=== PATIENT | male | born 1970 | race Caucasian/White ===

== ENCOUNTER 2020-12-25 18:39 | Emergency (ER) | payer OTHER, SELFPAY ==
[2020-12-25 19:18] VITALS: BP 186/122; PULSE 72; RESP 20; TEMP 36.2; O2SAT 100
--- NOTE | 2020-12-25 21:05 | PC.NURSE ---
no answer at triage for vital signs
[2020-12-25 22:00] VITALS: BP 153/97; PULSE 72; RESP 19; O2SAT 96
[2020-12-25 23:49] VITALS: BP 170/101; PULSE 70; RESP 19; O2SAT 97
[2020-12-26 00:01] VITALS: RESP 19; O2SAT 97
--- NOTE | 2020-12-26 00:11 | ED.RECABL ---
HPI - Recheck/Abnormal Lab/Rx General Chief Complaint: Recheck/Abnormal Lab/Rx Stated Complaint: htn , no other complaints Time Seen by Provider: 12/25/20 23:56 Source: patient Mode of arrival: ambulatory Limitations: no limitations History of Present Illness HPI narrative: A 50-year-old male comes into the emergency department tonight with complaints of high blood pressure. Patient states he went to the dentist to get his teeth extracted and was told that he could not have it done because of high blood pressure. Patient states that this was done x4. He is denying any symptoms specifically including chest pain, dizziness, lightheadedness, numbness tingling or any changes in vision. Patient states that he feels in his usual state of health. Related Data Allergies Allergy/AdvReac Type Severity Reaction Status Date / Time No Known Allergies Allergy Verified 12/26/20 00:19 Review of Systems Review of Systems: Narrative: CONSTITUTIONAL: Denies fever, chills, or sweats. EYES: Denies visual changes, redness, or discharge. ENT: Denies rhinorrhea, congestion, sore throat, or otalgia. CARDIOVASCULAR: Denies chest pain, palpitations, or edema. RESPIRATORY: Denies cough or dyspnea. GASTROINTESTINAL: Denies abdominal pain, nausea, vomiting, or diarrhea. GENITOURINARY: Denies dysuria or hematuria. SKIN: Denies rash or itching. MUSCULOSKELETAL: Denies back pain, joint pain, or myalgia. NEUROLOGIC: Denies headache, numbness, dizziness, or weakness. PSYCHIATRIC: Denies anxiety or depression. [facility] Social History Social History Gender identity (if verbalized by the patient): Male Exam Narrative: Exam Narrative: GENERAL: Well-appearing, well-nourished, and in no acute distress. HEAD: Normocephalic, atraumatic. EYES: PERRLA and EOMI. ENT: Nares clear, no rhinorrhea or epistaxis. Mucous membranes moist. NECK: Supple. No adenopathy or masses. No carotid bruits or JVD CHEST: Clear to auscultation. No respiratory distress. No wheezes rales or rhonchi HEART: Regular rate and rhythm. No murmur heard. Normal peripheral pulses. ABDOMEN: Soft, nontender, nondistended, normal active bowel sounds. EXTREMITIES: Normal range of motion. No edema. SKIN: Warm, dry, no rash. NEURO: No focal deficits. Alert and oriented x3. PSYCH: Normal mood and affect. Course Reevaluation(s) Reevaluation #1: By the time I was able to evaluate the patient he had sat here for quite some time. His blood pressure did wax and wane a bit. He stated that he was feeling well, I instructed him that he may be discharged at this time with no further work-up. Patient recommended to follow-up with his PCP. Time: 00:20 Vital Signs Vital signs: Vital Signs Temperature 36.2 C L 12/25/20 19:18 Pulse Rate 72 12/25/20 19:18 Respiratory Rate 20 12/25/20 19:18 Blood Pressure 186/122 H 12/25/20 19:18 Pulse Oximetry 100 12/25/20 19:18 Temperature 36.2 C L 12/25/20 19:18 Pulse Rate 70 12/25/20 23:49 Respiratory Rate 19 12/26/20 00:01 Blood Pressure 170/101 H 12/25/20 23:49 Pulse Oximetry 97 12/26/20 00:01 MDM - Recheck/Abnormal Lab/Rx MDM Narrative Medical decision making narrative: In brief this 50-year-old male came into the emergency department tonight with complaints of elevated blood pressure that he was found to have at his local dentist. Patient complains of no symptoms at this time. Patient's blood pressure was elevated but as he is asymptomatic I instructed him that he needs to follow-up with his primary care physician. He was encouraged that should any of this change in the start to develop symptoms he is welcome to return to the emergency department at any time. Lab Data Result diagrams: 12/25/20 20:33 Labs: Lab Results 12/25/20 Range/Units 20:33 Sodium Pending Potassium Pending Chloride Pending Carbon Dioxide Pending Anion Gap Pending BU
== END 2020-12-26 00:45 | disposition home or self-care (01) ==
LOC: ANHED 12-26 00:30
PROVIDERS: Emergency Provider Emergency Medicine; PCP Emergency Medicine
DX: I10 Essential (primary) hypertension (principal)
CPT/HCPCS: 36415; 99283

== ENCOUNTER 2021-01-01 09:43 | Outpatient (CLI) | payer OTHER, SELFPAY ==
--- NOTE | ~2021-01-01 | XR_ITS ---
EXAMINATION: XR chest 2V EXAM DATE: 01/01/2021 10:21 INDICATION: Hypertension. Smoking. TECHNIQUE: Frontal and lateral projections of the chest obtained and reviewed. There is no prior estefanía dy for comparison. FINDINGS: The lungs are clear. There are no pleural effusions. The cardiomediastinal silhouette is within normal limits. There is no pneumothorax suspected. The bones and soft tissues are unremarkab le. IMPRESSION: No acute cardiopulmonary findings. Reviewed, dictated and finalized at location A. PROCESSING WORKER
[2021-01-01 10:10] LABS: Mean Corpuscular HGB Conc 33.3 g/dl (32-36); Mean Corpuscular Hemoglobin 31.4 pg (26-34); Mean Corpuscular Volume 94.3 fl (80-100); Mean Platelet Volume 8.8 fl (7.4-10.4); Platelet Count Result 267 k/mm3 (150-375); Red Blood Count 5.09 M/mm3 (4.6-6.20); Red Cell Distribution Width 13.5 % (11.5-14.5)
[2021-01-01 10:22] LABS: Alanine Aminotransferase 16 U/L (4-50); Albumin Level 3.9 g/dL (3.5-5.1); Alkaline Phosphatase 76 U/L (38-126); Anion Gap 3 mmol/L (8-16); Aspartate Amino Transferase 18 U/L (17-59); Bilirubin,Total 0.9 mg/dL (0.2-1.3); Blood Urea Nitrogen 12 mg/dL (9-20); Calcium 8.5 mg/dL (8.4-10.2); Carbon Dioxide 33 mmol/L (22-30); Chloride 104 mmol/L (98-107); Cholesterol 136 mg/dL (0-200); Estimated Glomerular Filt Rate > 60; Glucose 97 mg/dL (75-110); HDL Direct 37 mg/dL; Potassium 4.5 mmol/L (3.4-5.0); Sodium 140 mmol/L (137-145); Triglycerides 79 mg/dL (<150)
[2021-01-01 10:33] LABS: LDL Cholesterol Direct 83 mg/dL
[2021-01-01 11:10] LABS: Hemoglobin A1C 4.9 % (<5.7)
[2021-01-01 11:11] LABS: Free T4 Free Thyroxine 1.19 ng/mL (0.78-2.19); Vitamin D 25 Hydroxy 21.2 ng/mL
[2021-01-01 11:40] LABS: MALB Creatinine Ratio 10.5 mg/g (0-30)
== END 2021-01-01 09:44 | disposition home or self-care (01) ==
PROVIDERS: PCP Emergency Medicine; Visit Provider Emergency Medicine
DX: Z00.00 Encounter for general adult medical examination without abnormal findings (principal); I10 Essential (primary) hypertension; E66.9 Obesity, unspecified; Z87.891 Personal history of nicotine dependence
CPT/HCPCS: 36415; 71046; 80053; 80061; 82043; 82306; 83036; 84439; 84443; 85027

== ENCOUNTER 2021-01-27 12:26 | Outpatient (CLI) | payer OTHER, SELFPAY ==
[2021-01-27 13:05] LABS: Hemoglobin A1C 5.1 % (<5.7)
[2021-01-27 13:37] LABS: Add Urine Microscopic? YES; Appearance Urine Cloudy (Clear); Bacteria Urine Trace /hpf; Bilirubin Urine Negative (Negative); Blood Urine Negative (Negative); Color Urine Amber (Yellow); Glucose Urine UA Negative (Negative); Ketones Urine Negative (Negative); Leukocyte Esterase Ur 2+ LEU/UL (NEGATIVE); Mucus Urine Few /lpf; Nitrate Urine Negative (Negative); Protein Urine 1+ mg/dL (Negative); Specific Grav Ur 1.026 (1.001-1.035); Squamous Epithelial Cell Urine Few /hpf (Few); WBC Urine 21-30 /hpf (0-3)
[2021-01-27 13:41] LABS: Prostate Specific Antigen 0.3 ng/mL (< OR = 4.0)
[2021-01-27 13:48] LABS: Creatinine Urine 214.3 mg/dL
[2021-01-27 13:52] LABS: Microalbumin Urine Random 32.2 mg/L (0-16.7)
[2021-01-27 14:32] LABS: Vitamin D 25 Hydroxy 23.7 ng/mL
== END 2021-01-27 12:27 | disposition home or self-care (01) ==
PROVIDERS: PCP Emergency Medicine; Visit Provider Emergency Medicine
DX: Z00.00 Encounter for general adult medical examination without abnormal findings (principal)
CPT/HCPCS: 36415; 81001; 82043; 82306; 83036; 84153

== ENCOUNTER 2021-02-06 12:56 | Outpatient (CLI) | payer OTHER, SELFPAY ==
[2021-02-06 13:56] LABS: Add Urine Microscopic? YES; Appearance Urine Cloudy (Clear); Bacteria Urine Trace /hpf; Bilirubin Urine Negative (Negative); Blood Urine Negative (Negative); Color Urine Yellow (Yellow); Glucose Urine UA Negative (Negative); Ketones Urine Negative (Negative); Leukocyte Esterase Ur Negative LEU/UL (NEGATIVE); Mucus Urine Rare /lpf; Nitrate Urine Negative (Negative); Protein Urine 1+ mg/dL (Negative); Specific Grav Ur 1.019 (1.001-1.035); Squamous Epithelial Cell Urine Moderate /hpf (Few); WBC Urine 0-3 /hpf (0-3)
== END 2021-02-06 12:57 | disposition home or self-care (01) ==
PROVIDERS: PCP Emergency Medicine; Visit Provider Emergency Medicine
DX: R31.29 Other microscopic hematuria (principal)
CPT/HCPCS: 81001; 87086; 87088

== ENCOUNTER 2023-10-27 11:57 | Inpatient (IN) | payer OTHER, SELFPAY ==
[2023-10-27] VITALS (20 sets, daily range): BP systolic 154–191; BP diastolic 105–120; PULSE 72–106; RESP 16–26; TEMP 36.6–36.9; O2SAT 94–100; BMI 64.0
--- NOTE | ~2023-10-27 | XR_ITS ---
EXAMINATION: XR chest 1V portable DATE: 10/30/2023 05:34 INDICATION: Congestive heart failure. TECHNIQUE: A single frontal view of the chest was obtained. COMPARISON: Chest single view 10/27/2023 FINDINGS: There are mild airspace opacities in left mid and lower lung zones. No pleural effusion or pneumothorax. Cardiomegaly is noted. IMPRESSION: 1. Worsened mild airspace opacities in left mid and lower lung zones, consistent with atelectasis brinda mimi pneumonia. 2. Cardiomegaly. Reviewed, dictated and finalized at location A. CTOR INFORMATION SECURITY IMPRESSION: 1. Worsened mild airspace opacities in left mid and lower lung zones, consisten t with atelectasis versus pneumonia. 2. Cardiomegaly.
--- NOTE | ~2023-10-27 | NM_ITS ---
EXAMINATION: NM muga DATE: 10/29/2023 10:57 INDICATION: Cardiomyopathy. Congestive heart failure. COMPARISON: None. TECHNIQUE: Stannous pyrophosphate was administered IV. After a waiting period, 25.8 mCi Tc-99m pertec hnetate was administered IV to radiolabel the red blood cells. Gated images of the heart were obtaine d in the best septal view.] FINDINGS: There is no regional wall motion abnormality or paradoxical motion of the left ventricle. The left ventricular ejection fraction measures 59%. IMPRESSION: 1. Normal left ventricular ejection fraction measuring 59%. Reviewed, dictated and finalized at location A. IGURATION SPECIALIST
--- NOTE | ~2023-10-27 | XR_ITS ---
EXAMINATION: XR chest 1V portable Exam Date/Time: 10/27/2023 16:40 [place]INA KURA [place] MAORI HISTORY: leg swelling Comparison: 01/01/2021. RESULT: Lines, tubes, and devices: None. Lungs and pleura: No focal consolidation or pneumothorax. Vascular congestion. Moderate diffuse reti cular opacities. Mild bilateral costophrenic angle blunting. Cardiomediastinal silhouette: Stable. Other: No acute osseous or upper abdominal finding. IMPRESSION: Moderate interstitial edema and possible small bilateral effusions. Reviewed, dictated and finalized at location K. WHINA [place] MAORI
--- NOTE | ~2023-10-27 | US_ITS ---
EXAMINATION:US venous doppler LE BI INDICATION:Leg swelling TECHNIQUE: Multiple grayscale, color flow and Doppler images of the right and left lower extremity de ep venous systems were obtained and reviewed. COMPARISON:No prior studies for comparison. FINDINGS: The right femoral, posterior tibial and peroneal vein as well as the left greater saphenous and peroneal veins are not well visualized due to patient body habitus and edema. The remainder of t he lower extremity veins are patent with normal compressibility, augmentation and color flow. IMPRESSION: 1: No lower extremity deep venous thrombosis. Limited study. Reviewed, dictated and finalized at location B. AND BEVERAGE ANALYST
--- NOTE | 2023-10-27 15:30 | ECG_ITS ---
Measurements Intervals [place] Rate: 92 P: [place]: 0 QRS: 41 QRSD: 101 T: 55 QT: 399 QTc: 494 Interpretive Statements ATRIAL FIBRILLATION LOW QRS VOLTAGE [QRS DEFLECTION < 0.5/1.0 mV IN LIMB/CHEST LEADS] INCOMPLETE RIGHT BUNDLE BRANCH BLOCK [90+ ms QRS DURATION, TERMINAL R IN V1/V2, 40+ ms S IN I/aVL/V4/V5/V6] POSSIBLE ANTERIOR MYOCARDIAL INFARCTION , PROBABLY OLD [30 ms Q WAVE IN V3/V4, OR R < 0.2 mV IN V4] NO PREVIOUS ECG AVAILABLE FOR COMPARISON Electronically Signed On 10-27-2023 21:09:51 LAWN CARE SPECIALIST by Zafar Sandoval M.D.
[2023-10-27 16:23] LABS: Basophils Absolute Auto 0.1 K/mm3 (0.0-0.1); Basophils Percent Auto 0.5 % (0.2-1.2); Eosinophils Absolute Auto 0.1 K/mm3 (0-0.3); Eosinophils Percent Auto 1.1 % (0-4.4); Hematocrit 45.9 % (42.0-52.0); Hemoglobin 14.4 g/dL (14.0-18.0); Immature Granulocyte Absolute 0.06 K/mm3 (0.00-0.031); Immature Granulocyte Percent A 0.6 % (0-0.5); Lymphocytes Absolute Auto 1.55 K/mm3 (0.9-3.2); Lymphocytes Percent Auto 14.9 % (18.3-44.2); Mean Corpuscular HGB Conc 31.4 g/dl (32-36); Mean Corpuscular Hemoglobin 33.4 pg (26-34); Mean Corpuscular Volume 106.5 fl (80-100); Mean Platelet Volume 8.5 fl (7.4-10.4); Monocytes Absolute Auto 0.8 K/mm3 (0.1-0.6); Neutrophils Absolute Auto 7.8 K/mm3 (1.3-6.7); Neutrophils Percent Auto 74.9 % (45.5-73.1); Platelet Count Result 283 k/mm3 (150-375); Red Blood Count 4.31 M/mm3 (4.6-6.20); Red Cell Distribution Width 14.7 % (11.5-14.5); White Blood Count 10.4 K/mm3 (4.5-10.0)
[2023-10-27 16:33] LABS: INR 1.2; Prothrombin Time 15.5 Seconds (11.1-14.7)
[2023-10-27 16:34] LABS: Macrocytosis 2+ (NORMAL); Partial Thromboplastin Time 36.2 SECONDS (22.3-36.8); Platelet Estimate Adequate (Adequate); Schistocytes None Seen (NORMAL)
[2023-10-27 17:05] LABS: Alanine Aminotransferase 17 U/L (6-50); Albumin Level 3.6 g/dL (3.5-5.1); Alkaline Phosphatase 81 U/L (38-126); Anion Gap 5 mmol/L (8-16); Aspartate Amino Transferase 27 U/L (17-59); Bilirubin,Total 1.6 mg/dL (0.2-1.3); Blood Urea Nitrogen 11 mg/dL (9-20); Calcium 8.3 mg/dL (8.4-10.2); Carbon Dioxide 35 mmol/L (22-30); Chloride 99 mmol/L (98-107); Estimated CRCL calculation 126 ml/min; Estimated Glomerular Filt Rate > 60; Glucose 107 mg/dL (65-110); Potassium 3.7 mmol/L (3.4-5.0); Sodium 139 mmol/L (137-145)
[2023-10-27 17:14] LABS: NT Pro B Type Natriuretic Pept 2110 pg/mL (19.9-100)
[2023-10-27] MEDS: FUROSEMIDE INJ 40 MG/4 ML VIAL IV PUSH ×2 (17:46→20:58)
--- NOTE | 2023-10-27 17:48 | ED.GENADULT ---
HPI - General Adult General Chief complaint: Abdominal Pain Stated complaint: abd distention, scrotal swelling Time Seen by Provider: 10/27/23 15:14 History of Present Illness HPI narrative: Patient is a 52-year-old male who presents ER with progressive edema. Worsening over the last month. Began in his legs and then has progressed up to his mid abdomen. No chest pain or shortness of breath. Has trouble using the restroom. Denies history of heart failure. No difficulty eating and drinking. Patient reports he is on his feet all day. No history DVT. Related Data Allergies Allergy/AdvReac Type Severity Reaction Status Date / Time No Known Allergies Allergy Verified 10/27/23 15:21 Review of Systems Review of Systems: All systems reviewed & are unremarkable except as noted in HPI and below Constitutional: Constitutional: Reports no additional constitutional complaints ENT: Reports system reviewed and no additional complaints, except as documented Cardiovascular: Cardiovascular: Reports no additional cardiovascular complaints Respiratory: Respiratory: Reports no additional respiratory complaints Gastrointestinal: Gastrointestinal: Reports no additional gastrointestinal complaints Musculoskeletal: Musculoskeletal: Denies arthralgias and Denies joint swelling Comments: Leg edema Integumentary/Breasts: Skin/Breast: Reports system reviewed and no additional complaints, except as docu PMF Past Medical History Medical History (Updated 10/27/23 @ 18:10 by Jared Drake MD) Hypertension Morbid obesity Surgical History Surgical History (Updated 10/27/23 @ 18:08 by Jared Drake MD) No pertinent past surgical history Social History Social History Gender identity (if verbalized by the patient): Male Exam Narrative: GENERAL: Well-appearing, well-nourished, and in no acute distress. HEAD: Normocephalic, atraumatic. ENT: Mucous membranes moist. CHEST: Clear to auscultation. No respiratory distress. HEART: Regular rate and rhythm. Normal peripheral pulses. ABDOMEN: Soft, nontender, nondistended, pitting edema to the umbilicus.. EXTREMITIES: Normal range of motion. 4+ edema. SKIN: Warm, dry, Venous stasis changes lower extremities. NEURO: Alert and oriented x3. PSYCH: Normal mood and affect. Course Course Emergency Course: Patient resting comfortably. Informed of results. Recommend admission for observation and diuresis. Would like to workup for heart failure exacerbation. Vital Signs Vital signs: Vital Signs Temperature 98 F 10/27/23 12:17 Pulse Rate 97 10/27/23 12:17 Respiratory Rate 20 10/27/23 12:17 Blood Pressure 160/115 H 10/27/23 12:17 Pulse Oximetry 96 10/27/23 12:17 Temperature 98 F 10/27/23 12:17 Pulse Rate 83 10/27/23 17:56 Respiratory Rate 24 H 10/27/23 17:56 Blood Pressure 183/115 H 10/27/23 17:56 Pulse Oximetry 100 10/27/23 17:52 Medical Decision Making Vital Signs Vital Signs: Vital Signs Temperature 98 F 10/27/23 12:17 Pulse Rate 97 10/27/23 12:17 Respiratory Rate 20 10/27/23 12:17 Blood Pressure 160/115 H 10/27/23 12:17 Pulse Oximetry 96 10/27/23 12:17 Temperature 98 F 10/27/23 12:17 Pulse Rate 83 10/27/23 17:56 Respiratory Rate 24 H 10/27/23 17:56 Blood Pressure 183/115 H 10/27/23 17:56 Pulse Oximetry 100 10/27/23 17:52 Lab Data 10/27/23 16:17 10/27/23 16:17 Labs: Lab Results 10/27/23 Range/Units 16:17 WBC 10.4 H (4.5-10.0) K/mm3 RBC 4.31 L (4.6-6.20) M/mm3 Hgb 14.4 (14.0-18.0) g/dL Hct 45.9 (42.0-52.0) % MCV 106.5 H (80-100) fl MCH 33.4 (26-34) pg MCHC 31.4 L (32-36) g/dl RDW 14.7 H (11.5-14.5) % Plt Count 283 (150-375) k/mm3 MPV 8.5 (7.4-10.4) fl Immature Gran % (Auto) 0.6 H (0-0.5) % Neut % (Auto) 74.9 H (45.5-73.1) % Lymp
--- NOTE | 2023-10-27 18:55 | ADMGEN ---
This patient, Ming Copeland, was admitted to [facility] Surg Room 324-02. Patient/family oriented to hospital policies and general routines including ID bracelet, bed and alarms, visiting hours, pain management, procedures, bathroom and other care routines, personal items, smoking policy, room service/diet, and visiting hours. Information on how to activate the Rapid Response Team has been discussed. Patient/Family are encouraged to report perceived risks to care and to ask questions if they do not understand what they are told or what they should do.
--- NOTE | 2023-10-27 20:21 | PM.IMHP ---
H&P: HPI History of Present Illness Date/Time: 10/27/23 20:21 Chief Complaint: Swelling Narrative: 52 y/o M presents here with increasing swelling with PMH of HTN (not on medications). Patient reports that he has been experiencing bilateral lower extremity edema chronically for the last 3-4 months. Initially attributed this swelling due to being on his feet for long periods of and standing long periods of of time at his job - currently works as a cook. Then in the last 1-1.5 weeks he began noticing lower abdominal swelling which then progressed to scrotal swelling in the last 2-3 days. Reports difficulty with urination related to the severity of swelling and inability to aim, has had to urinate in the shower. Reports mild shortness of breath at baseline, typically worsens with cold weather but denies any recent increase. Also denies chest pain or palpitations. Reports a history of high blood pressure, not currently on medications. No other past medical history. ED workup revealed WBC of 10.4, hgb normal at 14.4, mild hypercapnia, mild hypocalcemia, elevated proBNP 2110. CXR showed moderate interstitial edema and possible small bilateral effusions. US of BLE showed no DVT, limited study. Review of Systems Review of Systems: All systems reviewed & are unremarkable except as noted in HPI and below PMFSH Past Medical History Medical History (Updated 10/27/23 @ 22:47 by Letty Evans APRN) Hypertension Morbid obesity Surgical History Surgical History No pertinent past surgical history Social History Social History Smoking packs per day: 0.5 Smoking cigarettes per day: 10.0 Smoking status: Former smoker Alcohol intake: former Substance use: never Do You Feel Safe in your Home?: Yes Lack of Transportation: No Lack of Food: Never True Current Housing: I Have Housing Concerned About Future Housing: No Difficulty Paying Gas/Electric Bills: No Difficulty Paying for Meds: No Currently Unemployed: No Education: High School Diploma/GED Difficulty w/ Childcare or Family Care: No Gender identity (if verbalized by the patient): Male Spiritual care concerns: No Meds Home Medications and Allergies Home Medications Medication Instructions Recorded Confirmed Type No Home Medications 10/27/23 10/27/23 History Allergies Allergy/AdvReac Type Severity Reaction Status Date / Time No Known Allergies Allergy Verified 10/27/23 15:21 Vital Signs Vital Signs - 24 hr 10/27/23 12:17 10/27/23 15:24 10/27/23 15:33 Temperature 98 F Pulse Rate 97 102 H Respiratory Rate 20 19 22 H Blood Pressure 160/115 H 191/120 H Pulse Oximetry 96 99 94 10/27/23 16:17 10/27/23 16:41 10/27/23 16:45 Temperature Pulse Rate 85 85 90 Respiratory Rate 19 24 H 19 Blood Pressure Pulse Oximetry 95 96 10/27/23 17:00 10/27/23 17:52 10/27/23 17:56 Temperature Pulse Rate 85 85 83 Respiratory Rate 20 25 H 24 H Blood Pressure 183/115 H Pulse Oximetry 100 10/27/23 17:57 10/27/23 18:00 10/27/23 18:02 Temperature Pulse Rate 85 88 82 Respiratory Rate 16 20 21 H Blood Pressure 159/105 H Pulse Oximetry 99 100 98 10/27/23 18:15 10/27/23 18:22 10/27/23 18:23 Temperature Pulse Rate 86 88 90 Respiratory Rate 21 H 16 17 Blood Pressure 165/106 H Pulse Oximetry 99 10/27/23 18:30 Temperature Pulse Rate 106 H Respiratory Rate 26 H Blood Pressure Pulse Oximetry Exam Const: General: comfortable and no acute distress Other: Obese body habitus. Nontoxic appearance. HENMT: Face/Nose/Sinus: Normal nares present Mouth: Yes moist mucous membranes Eyes: General: appearance normal, both eyes and all related structures Sclera: sclerae normal Pupils: Equal, round and reactive pupils present EOM: EOMs intact bilaterally Resp:
[2023-10-27] MEDS: PROPRANOLOL HCL 40 MG TABLET PO (22:32)
[2023-10-27] MEDS: ceFAZolin 1 GM/NS 50 ML 1 GM/50 ML BAG IVPB (22:33)
[2023-10-28] VITALS (11 sets, daily range): BP systolic 128–152; BP diastolic 75–106; PULSE 64–84; RESP 13–18; TEMP 35.9–36.3; O2SAT 94–96
[2023-10-28] MEDS: ceFAZolin 1 GM/NS 50 ML 1 GM/50 ML BAG IVPB ×3 (05:32→21:18)
--- NOTE | 2023-10-28 06:00 | ECHO_ITS ---
Patient Info Name: Ming Copeland Age: 52 years : 1970 Gender: Male Ht: 68 in Wt: 421 lbs BSA: 3.15 m2 HR: 79 bpm BP: 159 / 102 mmHg Heart Rhythm: Indeterminant Technical Quality: Poor Exam Date: 10/28/2023 8:58 AM Exam Location: Echo Lab Patient Status: Outpatient Admit Date: 10/27/2023 Staff Ordering Physician: Jared Drake MD Trailer Park Manager: Ruben Nunez RDCS Attending Provider: Delmer Brenner MD Referring Physician: Vidal DEVRIES; Exam Type: CA echo dop color flow w con Study Info Indications - new heart faliure Complete two-dimensional, color flow and Doppler transthoracic echocardiogram is performed with contrast to opacify the left ventricle and to improve the deliniation of the left ventricle endocardial borders. Contrast/Agitated Saline Contrast/Ag. Saline: Definity Amount: 3.00 ml Reason for Poor Study: poor echocardiographic windows Summary 1. Technically difficult study with limited views due to patient body habitus. 2. Very technically difficult study due to patient body habitus, even with Definity. Cannot accurately estimate the left ventricular ejection fraction. Consider alternative cardiac imaging for assessment of LVEF. 3. Right ventricular chamber dimension is mildly enlarged. 4. Right atrial chamber dimension is moderately enlarged. 5. There is mild tricuspid valve regurgitation. Left Ventricle Very technically difficult study due to patient body habitus, even with Definity. Cannot accurately estimate the left ventricular ejection fraction. Consider alternative cardiac imaging for assessment of LVEF. Right Ventricle Right ventricular chamber dimension is mildly enlarged. Left Atria Left atrial chamber dimension is normal. Right Atria Right atrial chamber dimension is moderately enlarged. Atrial Septum Interatrial septum is not well visualized. Aortic Valve The aortic valve is not well visualized. There is no aortic valve regurgitation. Pulmonic Valve The pulmonic valve is not well visualized. Mitral Valve There is trace mitral valve regurgitation. Tricuspid Valve There is mild tricuspid valve regurgitation. Pericardium/Pleural There is no pericardial effusion. Inferior Vena Cava Inferior vena cava is not well visualized. Aorta The aortic root size at the sinus of Valsalva is normal. Left Ventricular Outflow Tract Name Value Normal LVOT Doppler LVOT Peak Gradient 2 mmHg LVOT Mean Gradient 1 mmHg LVOT VTI 14.61 cm LVOT VTI/AV VTI Ratio 0.57 Pulmonic Valve Name Value Normal RVOT Doppler RVOT Peak Gradient 1 mmHg PV Doppler PV Peak Gradient 2 mmHg Mitral Valve Name Value Normal
[2023-10-28 07:01] LABS: Basophils Absolute Auto 0.1 K/mm3 (0.0-0.1); Basophils Percent Auto 0.5 % (0.2-1.2); Eosinophils Absolute Auto 0.1 K/mm3 (0-0.3); Eosinophils Percent Auto 1.2 % (0-4.4); Hemoglobin 14.1 g/dL (14.0-18.0); Immature Granulocyte Absolute 0.05 K/mm3 (0.00-0.031); Immature Granulocyte Percent A 0.5 % (0-0.5); Lymphocytes Absolute Auto 1.57 K/mm3 (0.9-3.2); Lymphocytes Percent Auto 14.1 % (18.3-44.2); Mean Corpuscular Hemoglobin 33.8 pg (26-34); Mean Corpuscular Volume 105.5 fl (80-100); Mean Platelet Volume 8.8 fl (7.4-10.4); Monocytes Percent Auto 8.6 % (2.6-8.5); Neutrophils Absolute Auto 8.3 K/mm3 (1.3-6.7); Neutrophils Percent Auto 75.1 % (45.5-73.1); Platelet Count Result 302 k/mm3 (150-375); Red Blood Count 4.17 M/mm3 (4.6-6.20); Red Cell Distribution Width 14.7 % (11.5-14.5); White Blood Count 11.1 K/mm3 (4.5-10.0)
[2023-10-28 07:17] LABS: Alanine Aminotransferase 16 U/L (6-50); Albumin Level 3.5 g/dL (3.5-5.1); Alkaline Phosphatase 72 U/L (38-126); Anion Gap 7 mmol/L (8-16); Aspartate Amino Transferase 26 U/L (17-59); Blood Urea Nitrogen 12 mg/dL (9-20); Calcium 8.4 mg/dL (8.4-10.2); Carbon Dioxide 34 mmol/L (22-30); Chloride 98 mmol/L (98-107); Estimated CRCL calculation 127 ml/min; Estimated Glomerular Filt Rate > 60; Glucose 98 mg/dL (65-110); Potassium 3.5 mmol/L (3.4-5.0); Sodium 139 mmol/L (137-145)
[2023-10-28 07:49] LABS: CRP 3.1 mg/dL (<1.0); Cholesterol 111 mg/dL (0-200); HDL Direct 29 mg/dL; Triglycerides 77 mg/dL (<150)
[2023-10-28 07:57] LABS: LDL Cholesterol Direct 64 mg/dL
[2023-10-28] MEDS: PERFLUTREN LIPID MICROSPHERES 1.5 ML VIAL DILUTED TO 10 ML TOTAL VOLUME IV PUSH (09:25)
[2023-10-28] MEDS: PROPRANOLOL HCL 40 MG TABLET PO (09:58)
[2023-10-28] MEDS: FUROSEMIDE INJ 40 MG/4 ML VIAL IV PUSH ×2 (09:58→21:18)
[2023-10-28] MEDS: ENOXAPARIN 40 MG/0.4 ML SYRINGE SUB-Q (09:58)
[2023-10-28 10:23] LABS: Erythrocyte Sedimentation Rate 26 mm/hr (0-20)
[2023-10-28 10:48] LABS: Hemoglobin A1C 5.9 % (<5.7)
--- NOTE | 2023-10-28 10:55 | PM.IMPN ---
Progress Note: A&P Assessment and Plan (1) Edema of abdomen: Code(s): R18.8 - Other ascites Status: Acute Assessment and Plan: highly suspect new onset CHF. BNP currently elevated at 1999. CXR shows moderate interstitial edema and possible small bilateral effusions. Echo pending. Started on Lasix 40 IVP Q12H. cardiology consulted. TSH normal. A1c 5.9. Lipid: 111/29/64/77. Suspect patient also has cocurrent cellulitis of the lower abdomen and scrotum. Monitor I&Os and daily weights. Further plan of care post echo results. (2) Scrotum swelling: Code(s): N50.89 - Other specified disorders of the male genital organs Status: Acute Assessment and Plan: Physical exam findings of scrotum consistent with cellulitis. Started on Ancef. Adding ESR and CRP to a.m. labs. WBC mildly out of range at 10.4. Continue to trend. Adding Tee due to current inability to direct stream due to swelling, assisting with monitoring I&Os. No current open wounds to culture. Consider scrotal ultrasound if no improvement (3) Edema of both lower extremities: Code(s): R60.0 - Localized edema Status: Acute Assessment and Plan: See above. Currently being diuresed and worked up for new CHF. (4) Hypertension: Qualifiers: Hypertension type: primary hypertension Qualified Code(s): I10 - Essential (primary) hypertension Code(s): I10 - Essential (primary) hypertension Status: Acute Assessment and Plan: Previous diagnosis, not on medications. Due to likelihood of new onset CHF, started on propanolol 40 b.i.d. cardiology has been consulted, awaiting further recs. Continue to monitor blood pressure. Plan Diet: Heart healthy GI Prophylaxis: Not currently indicated DVT Prophylaxis: SCDs, Lovenox Lines: pIV Code Status: Full Code Subjective Date/time seen: 10/28/23 10:55 Interval history: Feels okay. Denies any shortness of breath. Reports leg swelling. Tee in place Review of Systems Review of Systems: All systems reviewed & are unremarkable except as noted in HPI and below Exam Narrative: GENERAL: Well-appearing, well-nourished, and in no acute distress. HEAD: Normocephalic, atraumatic. ENT:? Mucous membranes moist. CHEST: Clear to auscultation.? No respiratory distress. HEART: Regular rate and rhythm. ? Normal peripheral pulses. ABDOMEN: Soft, nontender, nondistended, pitting edema to the umbilicus.. EXTREMITIES: Normal range of motion.? 4+ edema. SKIN: Warm, dry, ? Venous stasis changes lower extremities. NEURO:? Alert and oriented x3. PSYCH: Normal mood and affect. Objective Data Vital Signs Vital Signs: Vital Signs - 24 hr 10/27/23 12:17 10/27/23 15:24 10/27/23 15:33 Temperature 98 F Pulse Rate 97 102 H Respiratory Rate 20 19 22 H Blood Pressure 160/115 H 191/120 H Pulse Oximetry 96 99 94 Oxygen Delivery 10/27/23 16:17 10/27/23 16:41 10/27/23 16:45 Temperature Pulse Rate 85 85 90 Respiratory Rate 19 24 H 19 Blood Pressure Pulse Oximetry 95 96 Oxygen Delivery 10/27/23 17:00 10/27/23 17:52 10/27/23 17:56 Temperature Pulse Rate 85 85 83 Respiratory Rate 20 25 H 24 H Blood Pressure 183/115 H Pulse Oximetry 100 Oxygen Delivery 10/27/23 17:57 10/27/23 18:00 10/27/23 18:02 Temperature Pulse Rate 85 88 82 Respiratory Rate 16 20 21 H Blood Pressure 159/105 H Pulse Oximetry 99 100 98 Oxygen Delivery 10/27/23 18:15 10/27/23 18:22 10/27/23 18:23 Temperature Pulse Rate 86 88 90 Respiratory Rate 21 H 16 17 Blood Pressure 165/106 H Pulse Oximetry 99 Oxygen Delivery 10/27/23 18:30 10/27/23 22:32 10/27/23 20:58 Temperature Pulse Rate 106 H 80 Respiratory Rate 26 H Blood Pressure Pulse Oximetry Oxygen Delivery Room Air 10/27/23 20:50 10/27/23 22:35 10/27/23 20:00 Temperature 98.5 F Pulse Rate 91 72 86 Respiratory Rat
--- NOTE | 2023-10-28 12:45 | PM.CNCAR ---
Assessment and Plan Assessment and plan (1) CHF exacerbation: Code(s): I50.9 - Heart failure, unspecified Status: Acute Assessment and Plan: Presents with what appears to be decompensated heart failure. Likely diastolic. Improving with IV furosemide Continue furosemide 40mg IV b.i.d. for now Daily weights Strict I&O CHF counseling Echo is pending, further recommendations to follow review of this study (2) Atrial fibrillation: Code(s): I48.91 - Unspecified atrial fibrillation Status: Acute Assessment and Plan: This is a new diagnosis. Chronicity unknown. He is rate controlled on propranolol. He has a CHADs2 Vasc score of 2 (CHF, HTN). Will start systemic a/c with Xarelto 20mg daily Can consider outpatient cardioversion after he has been anticoagulated for at least 4 weeks. Will shift from propranolol to Toprol XL (3) Hypertension: Qualifiers: Hypertension type: primary hypertension Qualified Code(s): I10 - Essential (primary) hypertension Code(s): I10 - Essential (primary) hypertension Status: Acute Assessment and Plan: Blood pressure improved. As above, shift to Toprol XL. May introduce additional agents depending on results of echo. History of Present Illness History of Present Illness Consult date/time: 10/28/23 12:45 Requesting physician: Letty Evans APRN Consult reason: congestive heart failure Reason For Visit: Heart Failure Narrative: Ming Copeland is a 52 year old male with hypertension. He is admitted to the hospital with a chief complaint of bilateral lower extremity edema. He also has cellulitis of the lower abdomen. He has been experiencing bilateral lower extremity swelling for the past two months. He also endorses shortness of breath. He denies any chest pain, palpitations, syncope, pre-syncope, orthopnea, or paroxysmal nocturnal dyspnea. He has been started on IV furosemide and reports improvement in his swelling. EKG and telemetry demonstrate atrial fibrillation with controlled ventricular response. He denies any history of atrial fibrillation or any arrhythmia. At the time of my visit with him he is lying flat in bed breathing comfortably on room air and has no complaints. Review of Systems Review of Systems: All systems reviewed & are unremarkable except as noted in HPI and below PMFSH Past Medical History Medical History Hypertension Morbid obesity Surgical History Surgical History No pertinent past surgical history Social History Social History Smoking packs per day: 0.5 Smoking cigarettes per day: 10.0 Smoking status: Former smoker Alcohol intake: former Substance use: never Do You Feel Safe in your Home?: Yes Lack of Transportation: No Lack of Food: Never True Current Housing: I Have Housing Concerned About Future Housing: No Difficulty Paying Gas/Electric Bills: No Difficulty Paying for Meds: No Currently Unemployed: No Education: High School Diploma/GED Difficulty w/ Childcare or Family Care: No Gender identity (if verbalized by the patient): Male Spiritual care concerns: No Meds Home Medications and Allergies Home Medications Medication Instructions Recorded Confirmed Type No Home Medications 10/27/23 10/27/23 History Allergies Allergy/AdvReac Type Severity Reaction Status Date / Time No Known Allergies Allergy Verified 10/27/23 15:21 Vital Signs Vital Signs - 24 hr 10/27/23 15:24 10/27/23 15:33 10/27/23 16:17 Temperature Pulse Rate 102 H 85 Respiratory Rate 19 22 H 19 Blood Pressure 191/120 H Pulse Oximetry 99 94 95 Oxygen Delivery 10/27/23 16:41 10/27/23 16:45 10/27/23 17:00 Temperature Pulse Rate 85 90 85 Respiratory Rate 24 H 19 20 Blood Pr
[2023-10-28] MEDS: RIVAROXABAN 20 MG TABLET PO (16:55)
[2023-10-29] VITALS (9 sets, daily range): BP systolic 143–166; BP diastolic 83–95; PULSE 55–79; RESP 14–20; TEMP 35.9–36.6; O2SAT 91–100
[2023-10-29] MEDS: ceFAZolin 1 GM/NS 50 ML 1 GM/50 ML BAG IVPB ×3 (05:22→21:05)
[2023-10-29 06:50] LABS: Basophils Absolute Auto 0.1 K/mm3 (0.0-0.1); Basophils Percent Auto 0.6 % (0.2-1.2); Eosinophils Absolute Auto 0.1 K/mm3 (0-0.3); Eosinophils Percent Auto 1.1 % (0-4.4); Hemoglobin 13.5 g/dL (14.0-18.0); Immature Granulocyte Absolute 0.05 K/mm3 (0.00-0.031); Immature Granulocyte Percent A 0.5 % (0-0.5); Lymphocytes Absolute Auto 1.61 K/mm3 (0.9-3.2); Lymphocytes Percent Auto 15.3 % (18.3-44.2); Mean Corpuscular HGB Conc 31.4 g/dl (32-36); Mean Corpuscular Hemoglobin 33.5 pg (26-34); Mean Corpuscular Volume 106.7 fl (80-100); Mean Platelet Volume 9.1 fl (7.4-10.4); Monocytes Percent Auto 9.8 % (2.6-8.5); Neutrophils Absolute Auto 7.7 K/mm3 (1.3-6.7); Neutrophils Percent Auto 72.7 % (45.5-73.1); Platelet Count Result 283 k/mm3 (150-375); Red Blood Count 4.03 M/mm3 (4.6-6.20); Red Cell Distribution Width 14.7 % (11.5-14.5); White Blood Count 10.5 K/mm3 (4.5-10.0)
[2023-10-29 07:24] LABS: Alanine Aminotransferase 13 U/L (6-50); Albumin Level 3.3 g/dL (3.5-5.1); Alkaline Phosphatase 65 U/L (38-126); Anion Gap 6 mmol/L (8-16); Aspartate Amino Transferase 23 U/L (17-59); Bilirubin,Total 1.5 mg/dL (0.2-1.3); Blood Urea Nitrogen 16 mg/dL (9-20); Calcium 7.9 mg/dL (8.4-10.2); Carbon Dioxide 32 mmol/L (22-30); Chloride 96 mmol/L (98-107); Estimated CRCL calculation 137 ml/min; Estimated Glomerular Filt Rate > 60; Glucose 97 mg/dL (65-110); Magnesium 1.8 mg/dL (1.6-2.3); Potassium 3.3 mmol/L (3.4-5.0); Sodium 134 mmol/L (137-145)
[2023-10-29] MEDS: POTASSIUM CHLORIDE 20 MEQ ER TABLET 40 MEQ PO (09:34)
[2023-10-29] MEDS: FUROSEMIDE INJ 40 MG/4 ML VIAL IV PUSH ×2 (09:35→20:07)
[2023-10-29] MEDS: METOPROLOL SUCCINATE EXT REL 25 MG TABCR PO (09:35)
--- NOTE | 2023-10-29 14:44 | PM.IMPN ---
Progress Note: A&P Assessment and Plan (1) Edema of abdomen: Code(s): R18.8 - Other ascites Status: Acute Assessment and Plan: highly suspect new onset CHF. BNP currently elevated at 1999. CXR shows moderate interstitial edema and possible small bilateral effusions. Echo pending. Started on Lasix 40 IVP Q12H. cardiology consulted. TSH normal. A1c 5.9. Lipid: 111/29/64/77. Suspect patient also has cocurrent cellulitis of the lower abdomen and scrotum. Monitor I&Os and daily weights. Echo reviewed. MUGA scan showed EF of 59%. Appreciate Cardiology recommendation. Also has underlying sleep apnea and on CPAP at home. (2) Scrotum swelling: Code(s): N50.89 - Other specified disorders of the male genital organs Status: Acute Assessment and Plan: Physical exam findings of scrotum consistent with cellulitis. Started on Ancef. Adding ESR and CRP to a.m. labs. WBC mildly out of range at 10.4. Continue to trend. Adding Tee due to current inability to direct stream due to swelling, assisting with monitoring I&Os. No current open wounds to culture. Consider scrotal ultrasound if no improvement (3) Edema of both lower extremities: Code(s): R60.0 - Localized edema Status: Acute Assessment and Plan: Likely due to acute on chronic diastolic congestive heart failure (4) Hypertension: Qualifiers: Hypertension type: primary hypertension Qualified Code(s): I10 - Essential (primary) hypertension Code(s): I10 - Essential (primary) hypertension Status: Acute Assessment and Plan: Previous diagnosis, not on medications. Due to likelihood of new onset CHF, started on propanolol 40 b.i.d. cardiology has been consulted, awaiting further recs. Continue to monitor blood pressure. Plan Diet: Heart healthy GI Prophylaxis: Not currently indicated DVT Prophylaxis: SCDs, Lovenox Lines: pIV Code Status: Full Code Subjective Date/time seen: 10/29/23 14:44 Interval history: Feeling better. Leg swelling improving. Shortness of breath has improved. Denies any new complaints. Review of Systems Review of Systems: All systems reviewed & are unremarkable except as noted in HPI and below Exam Narrative: GENERAL: Well-appearing, well-nourished, and in no acute distress. HEAD: Normocephalic, atraumatic. ENT:? Mucous membranes moist. CHEST: Clear to auscultation.? No respiratory distress. HEART: Regular rate and rhythm. ? Normal peripheral pulses. ABDOMEN: Soft, nontender, nondistended, pitting edema to the umbilicus.. EXTREMITIES: Normal range of motion.? 4+ edema. SKIN: Warm, dry, ? Venous stasis changes lower extremities. NEURO:? Alert and oriented x3. PSYCH: Normal mood and affect. Objective Data Vital Signs Vital Signs: Vital Signs - 24 hr 10/28/23 16:00 10/28/23 21:47 10/28/23 22:07 Temperature 96.9 F L Pulse Rate 72 68 Respiratory Rate 13 Blood Pressure 149/106 H 142/102 H Pulse Oximetry 96 Oxygen Delivery 10/28/23 21:18 10/28/23 21:18 10/29/23 00:00 Temperature Pulse Rate 64 55 L Respiratory Rate Blood Pressure Pulse Oximetry Oxygen Delivery Room Air 10/29/23 04:00 10/29/23 06:00 10/29/23 08:00 Temperature 96.9 F L Pulse Rate 65 69 69 Respiratory Rate 14 Blood Pressure 143/83 H Pulse Oximetry 91 Oxygen Delivery 10/29/23 08:00 10/29/23 13:59 Temperature 96.6 F L Pulse Rate 69 70 Respiratory Rate 14 18 Blood Pressure 166/84 H Pulse Oximetry 91 94 Oxygen Delivery Room Air Intake/Output Intake/Output: Intake & Output 10/26/23 10/27/23 10/28/23 10/29/23 23:59 23:59 23:59 23:59 Intake Total 50 1180 1230 Output Total [id number] [facility] -3902 -1472 Meds/Results Medications: Active Medications Generic Name Dose Route Start Last Admin Trade Name Freq PRN Reason Stop Dose Admin Acetaminophen 650 mg 10/27/23 17:50
--- NOTE | 2023-10-29 15:15 | PM.PNCARD ---
Progress Note: A&P Assessment and Plan (1) CHF exacerbation: Code(s): I50.9 - Heart failure, unspecified Status: Acute Assessment and Plan: Presents with what appears to be decompensated heart failure. Likely diastolic. Improving with IV furosemide. Continue furosemide 40mg IV b.i.d. for now Check chest x-ray in the morning Daily weights Strict I&O CHF counseling Echo unable to estimate left ventricular systolic function because of body habitus. Therefore, MUGA scan was ordered and showed LVEF 59%. Blood pressure control -will start spironolactone 25 mg daily Weight loss (2) Atrial fibrillation: Code(s): I48.91 - Unspecified atrial fibrillation Status: Acute Assessment and Plan: This is a new diagnosis. Chronicity unknown. He is rate controlled on propranolol. He has a CHADs2 Vasc score of 2 (CHF, HTN). Will start systemic a/c with Xarelto 20mg daily Can consider outpatient cardioversion after he has been anticoagulated for at least 4 weeks. Will shift from propranolol to Toprol XL (3) Hypertension: Qualifiers: Hypertension type: primary hypertension Qualified Code(s): I10 - Essential (primary) hypertension Code(s): I10 - Essential (primary) hypertension Status: Acute Assessment and Plan: Blood pressure improved. As above, shift to Toprol XL. Adding spironolactone 25 mg daily. Subjective Date/time seen: 10/29/23 15:15 Interval history: Cardiology follow-up for CHF, atrial fibrillation He feels better today. Swelling is improving. No shortness of breath, palpitations, chest pain Review of Systems Review of Systems: All systems reviewed & are unremarkable except as noted in HPI and below Exam Const: General: comfortable, no acute distress, alert and awake Orientation/consciousness: patient oriented x3 Other: Morbidly obese HENMT: Head: normal to inspection Eyes: General: appearance normal, both eyes and all related structures Pupils: Equal, round and reactive pupils present Neck: Neck: normal visual inspection and supple Carotids: normal carotid upstroke Other: Unable to assess JVD due to body habitus Resp: Effort & Inspection: normal respiratory effort Auscultation: clear to auscultation bilaterally and diminished lung sounds Cardio: Rate: regular rate Rhythm: abnormal rhythm irregularly irregular Heart sounds: S1 normal heart sound present, S2 normal heart sound present and no murmurs GI: Auscultation: normal bowel sounds Skin: General skin exam: normal color and lesion Lesions: lesion noted (right calf) Neuro: General: patient oriented x3 Cranial nerves: Yes Equal, round and reactive pupils present Extrem: General: abnormal to inspection Other: severe bilateral lower extremity edema extending to the abdomen Psych: Appearance: grossly normal Mental Status: mental status grossly normal Objective Data Vital Signs Vital Signs: Vital Signs - 24 hr 10/28/23 16:00 10/28/23 21:47 10/28/23 22:07 Temperature 36.1 C L Pulse Rate 72 68 Respiratory Rate 13 Blood Pressure 149/106 H 142/102 H Pulse Oximetry 96 Oxygen Delivery 10/28/23 21:18 10/28/23 21:18 10/29/23 00:00 Temperature Pulse Rate 64 55 L Respiratory Rate Blood Pressure Pulse Oximetry Oxygen Delivery Room Air 10/29/23 04:00 10/29/23 06:00 10/29/23 08:00 Temperature 36.1 C L Pulse Rate 65 69 69 Respiratory Rate 14 Blood Pressure 143/83 H Pulse Oximetry 91 Oxygen Delivery 10/29/23 08:00 10/29/23 13:59 Temperature 35.9 C L Pulse Rate 69 70 Respiratory Rate 14 18 Blood Pressure 166/84 H Pulse Oximetry 91 94 Oxygen Delivery Room Air Intake/Output Intake/Output: Intake & Output 10/26/23 10/27/23 10/28/23 10/29/23 23:59 23:59 23:59 23:59 Intake Total 50 1180 1230 Output Total 8816 6997 6360 [facility] -[id number] [phone] Meds/Results Medications:
[2023-10-29] MEDS: RIVAROXABAN 20 MG TABLET PO (16:20)
[2023-10-29] MEDS: SPIRONOLACTONE 25 MG TABLET PO (16:20)
[2023-10-30] VITALS (9 sets, daily range): BP systolic 148–163; BP diastolic 92–102; PULSE 64–81; RESP 18–20; TEMP 35.7–36.9; O2SAT 94–99
[2023-10-30] MEDS: ceFAZolin 1 GM/NS 50 ML 1 GM/50 ML BAG IVPB ×2 (05:01→14:50)
[2023-10-30 06:21] LABS: Basophils Percent Auto 0.4 % (0.2-1.2); Eosinophils Absolute Auto 0.2 K/mm3 (0-0.3); Eosinophils Percent Auto 1.4 % (0-4.4); Hematocrit 43.5 % (42.0-52.0); Hemoglobin 13.5 g/dL (14.0-18.0); Immature Granulocyte Absolute 0.06 K/mm3 (0.00-0.031); Immature Granulocyte Percent A 0.6 % (0-0.5); Lymphocytes Absolute Auto 1.55 K/mm3 (0.9-3.2); Lymphocytes Percent Auto 14.7 % (18.3-44.2); Mean Corpuscular Hemoglobin 33.2 pg (26-34); Mean Corpuscular Volume 106.9 fl (80-100); Mean Platelet Volume 8.7 fl (7.4-10.4); Monocytes Percent Auto 9.6 % (2.6-8.5); Neutrophils Absolute Auto 7.8 K/mm3 (1.3-6.7); Neutrophils Percent Auto 73.3 % (45.5-73.1); Platelet Count Result 253 k/mm3 (150-375); Red Blood Count 4.07 M/mm3 (4.6-6.20); Red Cell Distribution Width 14.6 % (11.5-14.5); White Blood Count 10.6 K/mm3 (4.5-10.0)
[2023-10-30 06:30] LABS: Alanine Aminotransferase 13 U/L (6-50); Albumin Level 3.5 g/dL (3.5-5.1); Alkaline Phosphatase 69 U/L (38-126); Anion Gap 3 mmol/L (8-16); Aspartate Amino Transferase 27 U/L (17-59); Bilirubin,Total 1.6 mg/dL (0.2-1.3); Blood Urea Nitrogen 15 mg/dL (9-20); Calcium 7.9 mg/dL (8.4-10.2); Carbon Dioxide 35 mmol/L (22-30); Chloride 96 mmol/L (98-107); Estimated CRCL calculation 123 ml/min; Estimated Glomerular Filt Rate > 60; Glucose 99 mg/dL (65-110); Magnesium 1.9 mg/dL (1.6-2.3); Potassium 3.1 mmol/L (3.4-5.0); Sodium 134 mmol/L (137-145)
[2023-10-30] MEDS: FUROSEMIDE INJ 40 MG/4 ML VIAL IV PUSH ×2 (10:07→20:34)
[2023-10-30] MEDS: METOPROLOL SUCCINATE EXT REL 25 MG TABCR PO (10:07)
[2023-10-30] MEDS: SPIRONOLACTONE 25 MG TABLET PO (10:08)
[2023-10-30] MEDS: POTASSIUM CHLORIDE 20 MEQ ER TABLET 40 MEQ PO (10:09)
--- NOTE | 2023-10-30 11:42 | PM.PNCARD ---
Progress Note: A&P Assessment and Plan (1) CHF exacerbation: Code(s): I50.9 - Heart failure, unspecified Status: Acute Assessment and Plan: Diastolic heart failure. Echo unable to estimate left ventricular systolic function because of body habitus. Therefore, MUGA scan was ordered and showed LVEF 59%. Continue Furosemide 40mg IV BID for now. He is diuresing well. Continue to monitor strict I/Os. Daily weights CHF counseling Blood pressure control - Started Spironolactone 25 mg daily. May consider addition of ARNI. Added Jardiance. Weight loss Needs outpatient sleep study. (2) Atrial fibrillation: Code(s): I48.91 - Unspecified atrial fibrillation Status: Acute Assessment and Plan: This is a new diagnosis. Chronicity unknown. He is rate controlled He has a CHADS2 Vasc score of 2 (CHF, HTN). Continue systemic anticoagulation with Xarelto 20mg daily Can consider outpatient cardioversion after he has been anticoagulated for at least 4 weeks. Continue Toprol for rate control. Needs an outpatient sleep study. (3) Hypertension: Qualifiers: Hypertension type: primary hypertension Qualified Code(s): I10 - Essential (primary) hypertension Code(s): I10 - Essential (primary) hypertension Status: Acute Assessment and Plan: Continue Toprol, Spironolactone. May consider adding ARNI. Subjective Date/time seen: 10/30/23 11:42 Interval history: Reason for visit: Congestive heart failure, atrial fibrillation HPI: Ming Copeland is a 52 year old male with hypertension.? He is admitted to the hospital with a chief complaint of bilateral lower extremity edema.? He also has cellulitis of the lower abdomen.? He has been experiencing bilateral lower extremity swelling for the past two months.? He also endorses shortness of breath.? He denies any chest pain, palpitations, syncope, pre-syncope, orthopnea, or paroxysmal nocturnal dyspnea.? He has been started on IV furosemide and reports improvement in his swelling.? EKG and telemetry demonstrate atrial fibrillation with controlled ventricular response.? He denies any history of atrial fibrillation or any arrhythmia.? At the time of my visit with him he is lying flat in bed breathing comfortably on room air and has no complaints.? Date of service 10/29: He feels better today.? Swelling is improving.? No shortness of breath, palpitations, chest pain Date of service 10/30: Diuresing well. Feeling better, has improvement in swelling. Review of Systems Review of Systems: All systems reviewed & are unremarkable except as noted in HPI and below (HPI) Exam Const: General: comfortable and no acute distress Other: Morbidly obese Eyes: General: appearance normal, both eyes and all related structures Sclera: sclerae normal Resp: Effort & Inspection: normal respiratory effort Cardio: Rhythm: abnormal rhythm irregularly irregular Other: Bilateral lower extremity swelling Neuro: Speech: normal speech Psych: Mental Status: mental status grossly normal Affect: normal affect Objective Data Vital Signs Vital Signs: Vital Signs - 24 hr 10/29/23 13:59 10/29/23 12:00 10/29/23 16:00 Temperature 35.9 C L Pulse Rate 70 69 70 Respiratory Rate 18 Blood Pressure 166/84 H Pulse Oximetry 94 Oxygen Delivery 10/29/23 19:50 10/29/23 21:30 10/29/23 20:00 Temperature 36.6 C Pulse Rate 79 74 Respiratory Rate 20 Blood Pressure 157/95 H Pulse Oximetry 100 Oxygen Delivery Room Air 10/30/23 00:00 10/30/23 04:00 10/30/23 06:00 Temperature 36.9 C Pulse Rate 67 75 64 Respiratory Rate 20 Blood Pressure 148/92 H Pulse Oximetry 99 Oxygen Delivery 10/30/23 10:07 Temperature Pulse Rate 68 Respiratory Rate Blood Pressure Pulse Oximetry Oxygen Delivery Intake/Output Intake/Output: Intake & Output 10/27/23 10/28/23 10/29/23 10/30/23 23:59 23:59 23:59 23
--- NOTE | 2023-10-30 13:03 | PM.IMPN ---
Progress Note: A&P Assessment and Plan (1) Edema of abdomen: Code(s): R18.8 - Other ascites Status: Acute Assessment and Plan: highly suspect new onset CHF. BNP currently elevated at 1999. CXR shows moderate interstitial edema and possible small bilateral effusions. Echo pending. Started on Lasix 40 IVP Q12H. cardiology consulted. TSH normal. A1c 5.9. Lipid: 111/29/64/77. Suspect patient also has cocurrent cellulitis of the lower abdomen and scrotum. Monitor I&Os and daily weights. Echo reviewed. MUGA scan showed EF of 59%. Appreciate Cardiology recommendation. Also has underlying sleep apnea and on CPAP at home. (2) Scrotum swelling: Code(s): N50.89 - Other specified disorders of the male genital organs Status: Acute Assessment and Plan: Physical exam findings of scrotum consistent with cellulitis. Started on Ancef. Adding ESR and CRP to a.m. labs. WBC mildly out of range at 10.4. Continue to trend. Adding Tee due to current inability to direct stream due to swelling, assisting with monitoring I&Os. No current open wounds to culture. Consider scrotal ultrasound if no improvement On cefazolin which will be continued (3) Edema of both lower extremities: Code(s): R60.0 - Localized edema Status: Acute Assessment and Plan: Likely due to acute on chronic diastolic congestive heart failure (4) Hypertension: Qualifiers: Hypertension type: primary hypertension Qualified Code(s): I10 - Essential (primary) hypertension Code(s): I10 - Essential (primary) hypertension Status: Acute Assessment and Plan: Previous diagnosis, not on medications. Due to likelihood of new onset CHF, started on propanolol 40 b.i.d. cardiology has been consulted, awaiting further recs. Continue to monitor blood pressure. Plan Diet: Heart healthy GI Prophylaxis: Not currently indicated DVT Prophylaxis: SCDs, Lovenox Lines: pIV Code Status: Full Code Subjective Date/time seen: 10/30/23 13:03 Interval history: No overnight events. Leg swelling improving. Denies any chest pain or shortness of breath.. Review of Systems Review of Systems: All systems reviewed & are unremarkable except as noted in HPI and below Exam Narrative: GENERAL: Well-appearing, well-nourished, and in no acute distress. HEAD: Normocephalic, atraumatic. ENT:? Mucous membranes moist. CHEST: Clear to auscultation.? No respiratory distress. HEART: Regular rate and rhythm. ? Normal peripheral pulses. ABDOMEN: Soft, nontender, nondistended, pitting edema to the umbilicus.. EXTREMITIES: Normal range of motion.? 4+ edema. SKIN: Warm, dry, ? Venous stasis changes lower extremities. NEURO:? Alert and oriented x3. PSYCH: Normal mood and affect. Objective Data Vital Signs Vital Signs: Vital Signs - 24 hr 10/29/23 13:59 10/29/23 16:00 10/29/23 19:50 Temperature 96.6 F L Pulse Rate 70 70 Respiratory Rate 18 Blood Pressure 166/84 H Pulse Oximetry 94 Oxygen Delivery Room Air 10/29/23 21:30 10/29/23 20:00 10/30/23 00:00 Temperature 97.8 F Pulse Rate 79 74 67 Respiratory Rate 20 Blood Pressure 157/95 H Pulse Oximetry 100 Oxygen Delivery 10/30/23 04:00 10/30/23 06:00 10/30/23 10:07 Temperature 98.5 F Pulse Rate 75 64 68 Respiratory Rate 20 Blood Pressure 148/92 H Pulse Oximetry 99 Oxygen Delivery 10/30/23 10:00 Temperature Pulse Rate 65 Respiratory Rate Blood Pressure Pulse Oximetry Oxygen Delivery Intake/Output Intake/Output: Intake & Output 10/27/23 10/28/23 10/29/23 10/30/23 23:59 23:59 23:59 23:59 Intake Total 50 1180 1620 658 Output Total 1325 7755 [id number] [id number] [facility]1275 -[id number] [phone] Meds/Results Medications: Active Medications Generic Name Dose Route Start Last Admin Trade Name Freq PRN Reason Stop Dose Admin Acetaminophen 650 mg 10/27/23 17:50 Acetam
[2023-10-30] MEDS: EMPAGLIFLOZIN 10 MG TABLET PO (14:32)
[2023-10-30] MEDS: RIVAROXABAN 20 MG TABLET PO (17:18)
[2023-10-31] VITALS (8 sets, daily range): BP systolic 121–150; BP diastolic 79–98; PULSE 68–98; RESP 16–20; TEMP 36.4–36.8; O2SAT 92–97
[2023-10-31 06:33] LABS: Basophils Absolute Auto 0.1 K/mm3 (0.0-0.1); Basophils Percent Auto 0.6 % (0.2-1.2); Eosinophils Absolute Auto 0.2 K/mm3 (0-0.3); Eosinophils Percent Auto 1.5 % (0-4.4); Hematocrit 45.4 % (42.0-52.0); Hemoglobin 14.1 g/dL (14.0-18.0); Immature Granulocyte Absolute 0.07 K/mm3 (0.00-0.031); Immature Granulocyte Percent A 0.7 % (0-0.5); Lymphocytes Absolute Auto 1.26 K/mm3 (0.9-3.2); Lymphocytes Percent Auto 12.6 % (18.3-44.2); Mean Corpuscular HGB Conc 31.1 g/dl (32-36); Mean Corpuscular Volume 106.3 fl (80-100); Mean Platelet Volume 8.8 fl (7.4-10.4); Monocytes Percent Auto 10.2 % (2.6-8.5); Neutrophils Absolute Auto 7.5 K/mm3 (1.3-6.7); Neutrophils Percent Auto 74.4 % (45.5-73.1); Platelet Count Result 258 k/mm3 (150-375); Red Blood Count 4.27 M/mm3 (4.6-6.20); Red Cell Distribution Width 14.5 % (11.5-14.5)
[2023-10-31 06:47] LABS: Alanine Aminotransferase 13 U/L (6-50); Albumin Level 3.5 g/dL (3.5-5.1); Alkaline Phosphatase 71 U/L (38-126); Anion Gap 6 mmol/L (8-16); Aspartate Amino Transferase 30 U/L (17-59); Bilirubin,Total 1.8 mg/dL (0.2-1.3); Blood Urea Nitrogen 15 mg/dL (9-20); Calcium 8.2 mg/dL (8.4-10.2); Carbon Dioxide 33 mmol/L (22-30); Chloride 96 mmol/L (98-107); Estimated CRCL calculation 121 ml/min; Estimated Glomerular Filt Rate > 60; Glucose 108 mg/dL (65-110); Magnesium 2.1 mg/dL (1.6-2.3); Potassium 3.5 mmol/L (3.4-5.0); Sodium 135 mmol/L (137-145)
[2023-10-31] MEDS: METOPROLOL SUCCINATE EXT REL 25 MG TABCR PO (09:17)
[2023-10-31] MEDS: SPIRONOLACTONE 25 MG TABLET PO (09:17)
[2023-10-31] MEDS: EMPAGLIFLOZIN 10 MG TABLET PO (09:17)
[2023-10-31] MEDS: FUROSEMIDE 40 MG TABLET PO (09:19)
--- NOTE | 2023-10-31 13:39 | PM.IMPN ---
Progress Note: A&P Assessment and Plan (1) Edema of abdomen: Code(s): R18.8 - Other ascites Status: Acute Assessment and Plan: highly suspect new onset CHF. BNP currently elevated at 1999. CXR shows moderate interstitial edema and possible small bilateral effusions. Echo pending. Started on Lasix 40 IVP Q12H. cardiology consulted. TSH normal. A1c 5.9. Lipid: 111/29/64/77. Suspect patient also has cocurrent cellulitis of the lower abdomen and scrotum. Monitor I&Os and daily weights. Echo reviewed. MUGA scan showed EF of 59%. Appreciate Cardiology recommendation. Also has underlying sleep apnea and on CPAP at home. Will get CPAP machine from home (2) Scrotum swelling: Code(s): N50.89 - Other specified disorders of the male genital organs Status: Acute Assessment and Plan: Physical exam findings of scrotum consistent with cellulitis. Started on Ancef. Adding ESR and CRP to a.m. labs. WBC mildly out of range at 10.4. Continue to trend. Adding Tee due to current inability to direct stream due to swelling, assisting with monitoring I&Os. No current open wounds to culture. Consider scrotal ultrasound if no improvement On cefazolin which will be continued Will switch cefazolin to oral antibiotics. (3) Edema of both lower extremities: Code(s): R60.0 - Localized edema Status: Acute Assessment and Plan: Likely due to acute on chronic diastolic congestive heart failure (4) Hypertension: Qualifiers: Hypertension type: primary hypertension Qualified Code(s): I10 - Essential (primary) hypertension Code(s): I10 - Essential (primary) hypertension Status: Acute Assessment and Plan: Previous diagnosis, not on medications. Due to likelihood of new onset CHF, started on propanolol 40 b.i.d. cardiology has been consulted, awaiting further recs. Continue to monitor blood pressure. Plan Diet: Heart healthy GI Prophylaxis: Not currently indicated DVT Prophylaxis: SCDs, Lovenox Lines: pIV Code Status: Full Code Subjective Date/time seen: 10/31/23 13:39 Interval history: No overnight events. Leg swelling coming down weight is down. Denies any chest pain or shortness of breath. Sore and his leg stable. Scrotal swelling has improved significantly. Review of Systems Review of Systems: All systems reviewed & are unremarkable except as noted in HPI and below Exam Narrative: GENERAL: Well-appearing, well-nourished, and in no acute distress. HEAD: Normocephalic, atraumatic. ENT:? Mucous membranes moist. CHEST: Clear to auscultation.? No respiratory distress. HEART: Regular rate and rhythm. ? Normal peripheral pulses. ABDOMEN: Soft, nontender, nondistended, pitting edema to the umbilicus.. EXTREMITIES: Normal range of motion.? 4+ edema. SKIN: Warm, dry, ? Venous stasis changes lower extremities. NEURO:? Alert and oriented x3. PSYCH: Normal mood and affect. Objective Data Vital Signs Vital Signs: Vital Signs - 24 hr 10/30/23 14:00 10/30/23 16:00 10/30/23 20:00 Temperature 96.3 F L Pulse Rate 73 71 Respiratory Rate 18 Blood Pressure 158/102 H Pulse Oximetry 94 Oxygen Delivery Room Air 10/30/23 22:00 10/31/23 04:00 10/31/23 00:00 Temperature 97.9 F Pulse Rate 81 68 73 Respiratory Rate 20 Blood Pressure 163/94 H Pulse Oximetry 94 Oxygen Delivery 10/30/23 20:00 10/31/23 06:00 10/31/23 09:17 Temperature 98.2 F Pulse Rate 76 78 88 Respiratory Rate 20 Blood Pressure 121/98 H Pulse Oximetry 93 Oxygen Delivery 10/31/23 09:00 Temperature Pulse Rate 97 Respiratory Rate Blood Pressure Pulse Oximetry Oxygen Delivery Intake/Output Intake/Output: Intake & Output 10/28/23 10/29/23 10/30/23 10/31/23 23:59 23:59 23:59 23:59 Intake Total 1180 1620 948 558 Output Total 3444 4950 6100 2550 [facility] -1395 -[phone] -[phone] -1992 Meds/Results Medicati
[2023-10-31] MEDS: FUROSEMIDE INJ 40 MG/4 ML VIAL IV PUSH (18:09)
[2023-10-31] MEDS: ceFAZolin 1 GM/NS 50 ML 1 GM/50 ML BAG IVPB ×2 (18:10→21:33)
[2023-10-31] MEDS: RIVAROXABAN 20 MG TABLET PO (18:17)
--- NOTE | 2023-10-31 19:43 | PC.NURSE ---
When assuming care for this pt, this RN noticed that pt cefazolin for 2200 and 0600 were not scanned. Night RN mentioned running them, and an IV was alarming with volume infused when I assessed pt. Pt inadvertently pulled out his RAC IV. House sup placed RW IV, but it was unable to flush at that time. Notified provider and inquired about a midline due to difficulty placing IV. Midline obtained. 1400 ancef hung at 1820. This RN missed his onetime potassium dose at 1100. When cleaning the MAR at 1800, this RN called to pharmacy to request retiming of ancef and a dose of K. Made night RN aware and she is okay with giving the 40 PO K needed.
[2023-10-31] MEDS: HYDROcodone/acetaminophen (*CRX) 5-325 MG TABLET 1 TAB PO (19:48)
[2023-10-31] MEDS: POTASSIUM CHLORIDE 20 MEQ ER TABLET 40 MEQ PO (19:48)
[2023-10-31] MEDS: SALINE LOCK FLUSH 10 ML IV PUSH (21:36)
[2023-11-01 05:22] VITALS: BP 129/76; PULSE 66; RESP 18; TEMP 36.6; O2SAT 93
[2023-11-01] MEDS: ceFAZolin 1 GM/NS 50 ML 1 GM/50 ML BAG IVPB (05:48)
[2023-11-01] MEDS: SALINE LOCK FLUSH 10 ML IV PUSH ×2 (05:49→13:26)
[2023-11-01 05:56] LABS: Basophils Absolute Auto 0.1 K/mm3 (0.0-0.1); Basophils Percent Auto 0.6 % (0.2-1.2); Eosinophils Absolute Auto 0.2 K/mm3 (0-0.3); Hematocrit 43.8 % (42.0-52.0); Hemoglobin 14.4 g/dL (14.0-18.0); Immature Granulocyte Absolute 0.06 K/mm3 (0.00-0.031); Immature Granulocyte Percent A 0.6 % (0-0.5); Lymphocytes Absolute Auto 1.42 K/mm3 (0.9-3.2); Lymphocytes Percent Auto 14.1 % (18.3-44.2); Mean Corpuscular HGB Conc 32.9 g/dl (32-36); Mean Corpuscular Hemoglobin 34.2 pg (26-34); Mean Platelet Volume 8.6 fl (7.4-10.4); Monocytes Percent Auto 10.2 % (2.6-8.5); Neutrophils Absolute Auto 7.3 K/mm3 (1.3-6.7); Neutrophils Percent Auto 72.5 % (45.5-73.1); Platelet Count Result 275 k/mm3 (150-375); Red Blood Count 4.21 M/mm3 (4.6-6.20); Red Cell Distribution Width 14.4 % (11.5-14.5); White Blood Count 10.1 K/mm3 (4.5-10.0)
[2023-11-01 06:10] LABS: Alanine Aminotransferase 15 U/L (6-50); Albumin Level 3.5 g/dL (3.5-5.1); Alkaline Phosphatase 71 U/L (38-126); Anion Gap 5 mmol/L (8-16); Aspartate Amino Transferase 27 U/L (17-59); Bilirubin,Total 1.8 mg/dL (0.2-1.3); Blood Urea Nitrogen 17 mg/dL (9-20); Calcium 8.3 mg/dL (8.4-10.2); Carbon Dioxide 34 mmol/L (22-30); Chloride 97 mmol/L (98-107); Estimated CRCL calculation 118 ml/min; Estimated Glomerular Filt Rate > 60; Glucose 100 mg/dL (65-110); Magnesium 2.1 mg/dL (1.6-2.3); Potassium 3.2 mmol/L (3.4-5.0); Sodium 136 mmol/L (137-145)
[2023-11-01] MEDS: METOPROLOL SUCCINATE EXT REL 25 MG TABCR PO (08:26)
[2023-11-01] MEDS: EMPAGLIFLOZIN 10 MG TABLET PO (08:26)
[2023-11-01] MEDS: POTASSIUM CHLORIDE 20 MEQ ER TABLET 40 MEQ PO (08:26)
[2023-11-01] MEDS: FUROSEMIDE INJ 40 MG/4 ML VIAL IV PUSH (08:26)
[2023-11-01] MEDS: SPIRONOLACTONE 25 MG TABLET PO (08:26)
[2023-11-01] MEDS: CEPHALEXIN 500 MG CAPSULE PO ×2 (12:17→16:59)
--- NOTE | 2023-11-01 12:33 | PM.PNCARD ---
Progress Note: A&P Assessment and Plan (1) CHF exacerbation: Code(s): I50.9 - Heart failure, unspecified Status: Acute Assessment and Plan: Diastolic heart failure. Echo unable to estimate left ventricular systolic function because of body habitus. Therefore, MUGA scan was ordered and showed LVEF 59%. He is diuresing 5-6 liters of urine with the Lasix 40mg IV BID, net negative 4-5 liters daily. To avoid overaggressive diuresis, will back down to Lasix 40mg IV daily. This admission, he is cumulative net negative almost 17L! Daily weights CHF counseling Blood pressure control - Started Spironolactone 25 mg daily. May consider addition of ARNI depending on his pressures. Added Jardiance. Weight loss Needs outpatient sleep study. (2) Atrial fibrillation: Code(s): I48.91 - Unspecified atrial fibrillation Status: Acute Assessment and Plan: This is a new diagnosis. Chronicity unknown. He is rate controlled He has a CHADS2 Vasc score of 2 (CHF, HTN). Continue systemic anticoagulation with Xarelto 20mg daily Can consider outpatient cardioversion after he has been anticoagulated for at least 4 weeks. Continue Toprol for rate control. Needs an outpatient sleep study. (3) Hypertension: Qualifiers: Hypertension type: primary hypertension Qualified Code(s): I10 - Essential (primary) hypertension Code(s): I10 - Essential (primary) hypertension Status: Acute Assessment and Plan: Continue Toprol, Spironolactone. May consider adding ARNI. Subjective Date/time seen: 11/01/23 12:33 Interval history: Reason for visit: Congestive heart failure, atrial fibrillation HPI: Ming Copeland is a 52 year old male with hypertension.? He is admitted to the hospital with a chief complaint of bilateral lower extremity edema.? He also has cellulitis of the lower abdomen.? He has been experiencing bilateral lower extremity swelling for the past two months.? He also endorses shortness of breath.? He denies any chest pain, palpitations, syncope, pre-syncope, orthopnea, or paroxysmal nocturnal dyspnea.? He has been started on IV furosemide and reports improvement in his swelling.? EKG and telemetry demonstrate atrial fibrillation with controlled ventricular response.? He denies any history of atrial fibrillation or any arrhythmia.? At the time of my visit with him he is lying flat in bed breathing comfortably on room air and has no complaints.? Date of service 10/29: He feels better today.? Swelling is improving.? No shortness of breath, palpitations, chest pain Date of service 10/30: Diuresing well. Feeling better, has improvement in swelling. Date of service 11/01: Feeling better. Leg swelling is getting better. Review of Systems Review of Systems: All systems reviewed & are unremarkable except as noted in HPI and below (HPI) Exam Const: General: comfortable and no acute distress Other: Morbidly obese Eyes: General: appearance normal, both eyes and all related structures Sclera: sclerae normal Resp: Effort & Inspection: normal respiratory effort Cardio: Rhythm: abnormal rhythm irregularly irregular Other: Bilateral lower extremity swelling Neuro: Speech: normal speech Psych: Mental Status: mental status grossly normal Affect: normal affect Objective Data Vital Signs Vital Signs: Vital Signs - 24 hr 10/31/23 14:00 10/31/23 20:42 10/31/23 20:00 Temperature 36.4 C L 36.6 C Pulse Rate 72 75 Respiratory Rate 18 16 Blood Pressure 150/90 H 131/79 Pulse Oximetry 92 97 Oxygen Delivery Room Air 10/31/23 22:50 10/31/23 22:50 11/01/23 05:22 Temperature 36.6 C Pulse Rate 98 66 Respiratory Rate 18 Blood Pressure 129/76 Pulse Oximetry 94 94 93 Oxygen Delivery Autopap Room Air 11/01/23 08:00 Temperature Pulse Rate Respiratory Rate Blood Pressure Pulse Oximetry Oxygen Delivery Room Air Intake/Output Intake/Output:
[2023-11-01 14:00] VITALS: BP 132/73; PULSE 72; RESP 18; TEMP 36.3; O2SAT 92
--- NOTE | 2023-11-01 15:20 | PM.IMPN ---
Progress Note: A&P Assessment and Plan (1) Edema of abdomen: Code(s): R18.8 - Other ascites Status: Acute Assessment and Plan: highly suspect new onset CHF. BNP currently elevated at 1999. CXR shows moderate interstitial edema and possible small bilateral effusions. Echo pending. Started on Lasix 40 IVP Q12H. cardiology consulted. TSH normal. A1c 5.9. Lipid: 111/29/64/77. Suspect patient also has cocurrent cellulitis of the lower abdomen and scrotum. Monitor I&Os and daily weights. Echo reviewed. MUGA scan showed EF of 59%. Appreciate Cardiology recommendation. Also has underlying sleep apnea and on CPAP at home. Started back on CPAP machine from home Continue diuresis as ordered (2) Scrotum swelling: Code(s): N50.89 - Other specified disorders of the male genital organs Status: Acute Assessment and Plan: Physical exam findings of scrotum consistent with cellulitis. Started on Ancef. Adding ESR and CRP to a.m. labs. WBC mildly out of range at 10.4. Continue to trend. Adding Tee due to current inability to direct stream due to swelling, assisting with monitoring I&Os. No current open wounds to culture. Consider scrotal ultrasound if no improvement On cefazolin which will be continued Will switch cefazolin to oral antibiotics. (3) Edema of both lower extremities: Code(s): R60.0 - Localized edema Status: Acute Assessment and Plan: Likely due to acute on chronic diastolic congestive heart failure (4) Hypertension: Qualifiers: Hypertension type: primary hypertension Qualified Code(s): I10 - Essential (primary) hypertension Code(s): I10 - Essential (primary) hypertension Status: Acute Assessment and Plan: Previous diagnosis, not on medications. Due to likelihood of new onset CHF, started on propanolol 40 b.i.d. cardiology has been consulted, awaiting further recs. Continue to monitor blood pressure. Plan Diet: Heart healthy GI Prophylaxis: Not currently indicated DVT Prophylaxis: SCDs, Lovenox Lines: pIV Code Status: Full Code Subjective Date/time seen: 11/01/23 15:20 Interval history: No new complaints. Leg swelling improving. Denies any chest pain. Weight is coming down Review of Systems Review of Systems: All systems reviewed & are unremarkable except as noted in HPI and below Exam Narrative: GENERAL: Well-appearing, well-nourished, and in no acute distress. HEAD: Normocephalic, atraumatic. ENT:? Mucous membranes moist. CHEST: Clear to auscultation.? No respiratory distress. HEART: Regular rate and rhythm. ? Normal peripheral pulses. ABDOMEN: Soft, nontender, nondistended, pitting edema to the umbilicus.. EXTREMITIES: Normal range of motion.? 1+ edema. SKIN: Warm, dry, ? Venous stasis changes lower extremities. NEURO:? Alert and oriented x3. PSYCH: Normal mood and affect. Objective Data Vital Signs Vital Signs: Vital Signs - 24 hr 10/31/23 20:42 10/31/23 20:00 10/31/23 22:50 Temperature 97.9 F Pulse Rate 75 98 Respiratory Rate 16 Blood Pressure 131/79 Pulse Oximetry 97 94 Oxygen Delivery Room Air Autopap 10/31/23 22:50 11/01/23 05:22 11/01/23 08:00 Temperature 97.9 F Pulse Rate 66 Respiratory Rate 18 Blood Pressure 129/76 Pulse Oximetry 94 93 Oxygen Delivery Room Air Room Air 11/01/23 14:00 Temperature 97.4 F L Pulse Rate 72 Respiratory Rate 18 Blood Pressure 132/73 Pulse Oximetry 92 Oxygen Delivery Intake/Output Intake/Output: Intake & Output 10/29/23 10/30/23 10/31/23 11/01/23 23:59 23:59 23:59 23:59 Intake Total 1620 948 898 808 Output Total 4950 6100 5550 8500 [facility] [phone] Meds/Results Medications: Active Medications Generic Name Dose Route Start Last Admin Trade Name Freq PRN Reason Stop Dose Admin Acetaminophen 650 mg 10/27/23 17:50 Acetaminophen 325 Mg Tablet PO Q4H PRN
[2023-11-01] MEDS: RIVAROXABAN 20 MG TABLET PO (17:00)
[2023-11-01 22:00] VITALS: BP 129/85; PULSE 81; RESP 21; TEMP 36.4; O2SAT 98
[2023-11-02] VITALS (7 sets, daily range): BP systolic 101–149; BP diastolic 74–83; PULSE 69–91; RESP 12–21; TEMP 36.2–36.9; O2SAT 95–99
[2023-11-02] MEDS: CEPHALEXIN 500 MG CAPSULE PO ×5 (01:42→23:34)
[2023-11-02] MEDS: SALINE LOCK FLUSH 10 ML IV PUSH ×3 (06:30→23:34)
[2023-11-02 06:42] LABS: Basophils Absolute Auto 0.1 K/mm3 (0.0-0.1); Basophils Percent Auto 0.5 % (0.2-1.2); Eosinophils Absolute Auto 0.2 K/mm3 (0-0.3); Eosinophils Percent Auto 1.8 % (0-4.4); Hemoglobin 14.2 g/dL (14.0-18.0); Immature Granulocyte Absolute 0.05 K/mm3 (0.00-0.031); Immature Granulocyte Percent A 0.5 % (0-0.5); Lymphocytes Absolute Auto 1.25 K/mm3 (0.9-3.2); Lymphocytes Percent Auto 12.5 % (18.3-44.2); Mean Corpuscular HGB Conc 31.6 g/dl (32-36); Mean Corpuscular Hemoglobin 33.2 pg (26-34); Mean Corpuscular Volume 105.1 fl (80-100); Monocytes Absolute Auto 1.1 K/mm3 (0.1-0.6); Monocytes Percent Auto 11.2 % (2.6-8.5); Neutrophils Absolute Auto 7.4 K/mm3 (1.3-6.7); Neutrophils Percent Auto 73.5 % (45.5-73.1); Platelet Count Result 267 k/mm3 (150-375); Red Blood Count 4.28 M/mm3 (4.6-6.20); Red Cell Distribution Width 14.3 % (11.5-14.5)
[2023-11-02 06:50] LABS: Anion Gap 7 mmol/L (8-16); Blood Urea Nitrogen 18 mg/dL (9-20); Calcium 8.5 mg/dL (8.4-10.2); Carbon Dioxide 31 mmol/L (22-30); Chloride 97 mmol/L (98-107); Estimated CRCL calculation 118 ml/min; Estimated Glomerular Filt Rate > 60; Glucose 102 mg/dL (65-110); Magnesium 2.1 mg/dL (1.6-2.3); Potassium 3.5 mmol/L (3.4-5.0); Sodium 135 mmol/L (137-145)
[2023-11-02] MEDS: SPIRONOLACTONE 25 MG TABLET PO (08:17)
[2023-11-02] MEDS: METOPROLOL SUCCINATE EXT REL 25 MG TABCR PO (08:17)
[2023-11-02] MEDS: EMPAGLIFLOZIN 10 MG TABLET PO (08:17)
[2023-11-02] MEDS: FUROSEMIDE INJ 40 MG/4 ML VIAL IV PUSH (08:18)
--- NOTE | 2023-11-02 12:09 | PM.PNCARD ---
Progress Note: A&P Assessment and Plan (1) CHF exacerbation: Code(s): I50.9 - Heart failure, unspecified Status: Acute Assessment and Plan: Diastolic heart failure. Echo unable to estimate left ventricular systolic function because of body habitus. Therefore, MUGA scan was ordered and showed LVEF 59%. He is diuresing 5-6 liters of urine with the Lasix 40mg IV BID, net negative 4-5 liters daily. Will transition to oral furosemide today, perhaps discharge in the next 24 - 48 hours? Daily weights CHF counseling Blood pressure control - Started Spironolactone 25 mg daily. May consider addition of ARNI depending on his pressures. Added Jardiance. Weight loss Needs outpatient sleep study. (2) Atrial fibrillation: Code(s): I48.91 - Unspecified atrial fibrillation Status: Acute Assessment and Plan: This is a new diagnosis. Chronicity unknown. He is rate controlled He has a CHADS2 Vasc score of 2 (CHF, HTN). Continue systemic anticoagulation with Xarelto 20mg daily Can consider outpatient cardioversion after he has been anticoagulated for at least 4 weeks. Continue Toprol for rate control. Needs an outpatient sleep study. (3) Hypertension: Qualifiers: Hypertension type: primary hypertension Qualified Code(s): I10 - Essential (primary) hypertension Code(s): I10 - Essential (primary) hypertension Status: Acute Assessment and Plan: Continue Toprol, Spironolactone. May consider adding ARNI. Subjective Date/time seen: 11/02/23 12:09 Interval history: Reason for visit: Congestive heart failure, atrial fibrillation HPI: Ming Copeland is a 52 year old male with hypertension.? He is admitted to the hospital with a chief complaint of bilateral lower extremity edema.? He also has cellulitis of the lower abdomen.? He has been experiencing bilateral lower extremity swelling for the past two months.? He also endorses shortness of breath.? He denies any chest pain, palpitations, syncope, pre-syncope, orthopnea, or paroxysmal nocturnal dyspnea.? He has been started on IV furosemide and reports improvement in his swelling.? EKG and telemetry demonstrate atrial fibrillation with controlled ventricular response.? He denies any history of atrial fibrillation or any arrhythmia.? At the time of my visit with him he is lying flat in bed breathing comfortably on room air and has no complaints.? Date of service 12/29: He feels better today.? Swelling is improving.? No shortness of breath, palpitations, chest pain Date of service 10/30: Diuresing well. Feeling better, has improvement in swelling. Date of service 11/01: Feeling better. Leg swelling is getting better. Date of service 11/02/23: Feels well today. No complaints. Swelling continues to improve. Review of Systems Review of Systems: All systems reviewed & are unremarkable except as noted in HPI and below (HPI) Exam Const: General: comfortable, no acute distress, alert and awake Orientation/consciousness: patient oriented x3 Other: Morbidly obese HENMT: Head: normal to inspection Eyes: General: appearance normal, both eyes and all related structures Sclera: sclerae normal Pupils: Equal, round and reactive pupils present Neck: Neck: normal visual inspection and supple Carotids: normal carotid upstroke Other: Unable to assess JVD due to body habitus Resp: Effort & Inspection: normal respiratory effort Auscultation: clear to auscultation bilaterally and diminished lung sounds Cardio: Rate: regular rate Rhythm: abnormal rhythm irregularly irregular Heart sounds: S1 normal heart sound present, S2 normal heart sound present and no murmurs Other: Bilateral lower extremity swelling GI: Auscultation: normal bowel sounds Skin: General skin exam: normal color and lesion (right calf) Lesions: lesion noted (right calf) Neuro: General: patient oriented x3 Cranial nerves: Yes Equal, round an
--- NOTE | 2023-11-02 13:07 | PM.IMPN ---
Progress Note: A&P Assessment and Plan (1) Edema of abdomen: Code(s): R18.8 - Other ascites Status: Acute Assessment and Plan: highly suspect new onset CHF. BNP currently elevated at 1999. CXR shows moderate interstitial edema and possible small bilateral effusions. Echo pending. Started on Lasix 40 IVP Q12H. cardiology consulted. TSH normal. A1c 5.9. Lipid: 111/29/64/77. Suspect patient also has cocurrent cellulitis of the lower abdomen and scrotum. Monitor I&Os and daily weights. Echo reviewed. MUGA scan showed EF of 59%. Appreciate Cardiology recommendation. Also has underlying sleep apnea and on CPAP at home. Started back on CPAP machine from home Continue diuresis as ordered been switched to oral Lasix per Cardiology Home when okay with Cardiology Will have Tee removed today and do void trial (2) Scrotum swelling: Code(s): N50.89 - Other specified disorders of the male genital organs Status: Acute Assessment and Plan: Physical exam findings of scrotum consistent with cellulitis. Started on Ancef. Adding ESR and CRP to a.m. labs. WBC mildly out of range at 10.4. Continue to trend. Adding Tee due to current inability to direct stream due to swelling, assisting with monitoring I&Os. No current open wounds to culture. Consider scrotal ultrasound if no improvement On cefazolin which will be continued Switched to cefazolin to complete the course (3) Edema of both lower extremities: Code(s): R60.0 - Localized edema Status: Acute Assessment and Plan: Likely due to acute on chronic diastolic congestive heart failure (4) Hypertension: Qualifiers: Hypertension type: primary hypertension Qualified Code(s): I10 - Essential (primary) hypertension Code(s): I10 - Essential (primary) hypertension Status: Acute Assessment and Plan: Previous diagnosis, not on medications. Due to likelihood of new onset CHF, started on propanolol 40 b.i.d. cardiology has been consulted, awaiting further recs. Continue to monitor blood pressure. Plan Diet: Heart healthy GI Prophylaxis: Not currently indicated DVT Prophylaxis: SCDs, Lovenox Lines: pIV Code Status: Full Code Subjective Date/time seen: 11/02/23 13:07 Interval history: No overnight events. Feeling well. Right leg wound stable Review of Systems Review of Systems: All systems reviewed & are unremarkable except as noted in HPI and below Exam Narrative: GENERAL: Well-appearing, well-nourished, and in no acute distress. HEAD: Normocephalic, atraumatic. ENT:? Mucous membranes moist. CHEST: Clear to auscultation.? No respiratory distress. HEART: Regular rate and rhythm. ? Normal peripheral pulses. ABDOMEN: Soft, nontender, nondistended, pitting edema to the umbilicus.. EXTREMITIES: Normal range of motion.? 1+ edema. SKIN: Warm, dry, ? Venous stasis changes lower extremities. NEURO:? Alert and oriented x3. PSYCH: Normal mood and affect. Objective Data Vital Signs Vital Signs: Vital Signs - 24 hr 11/01/23 14:00 11/01/23 22:00 11/01/23 20:00 Temperature 97.4 F L 97.5 F L Pulse Rate 72 81 Respiratory Rate 18 21 H Blood Pressure 132/73 129/85 Pulse Oximetry 92 98 Oxygen Delivery Room Air 11/02/23 00:45 11/02/23 06:00 11/02/23 08:17 Temperature 97.2 F L Pulse Rate 91 69 77 Respiratory Rate 21 H Blood Pressure 149/74 H Pulse Oximetry 95 96 Oxygen Delivery Autopap 11/02/23 08:17 Temperature Pulse Rate Respiratory Rate Blood Pressure Pulse Oximetry Oxygen Delivery Room Air Intake/Output Intake/Output: Intake & Output 10/30/23 10/31/23 11/01/23 11/02/23 23:59 23:59 23:59 23:59 Intake Total 746 203 6484 801 Output Total 7650 5550 3650 1150 [facility] -[phone] Meds/Results Medications: Active Medications Generic Name Dose Route Start Last Admin Trade Name Freq PRN Reason Stop Dose
[2023-11-02] MEDS: RIVAROXABAN 20 MG TABLET PO (17:04)
[2023-11-02] MEDS: FUROSEMIDE 40 MG TABLET PO (17:04)
[2023-11-02] MEDS: POTASSIUM CHLORIDE 10 MEQ ER TABLET PO (17:04)
[2023-11-03] MEDS: SALINE LOCK FLUSH 10 ML IV PUSH ×2 (05:03→14:05)
[2023-11-03] MEDS: CEPHALEXIN 500 MG CAPSULE PO ×2 (05:03→11:13)
[2023-11-03 05:11] LABS: Basophils Absolute Auto 0.1 K/mm3 (0.0-0.1); Basophils Percent Auto 0.6 % (0.2-1.2); Eosinophils Absolute Auto 0.2 K/mm3 (0-0.3); Hematocrit 44.4 % (42.0-52.0); Hemoglobin 14.2 g/dL (14.0-18.0); Immature Granulocyte Absolute 0.06 K/mm3 (0.00-0.031); Immature Granulocyte Percent A 0.6 % (0-0.5); Lymphocytes Absolute Auto 1.51 K/mm3 (0.9-3.2); Lymphocytes Percent Auto 14.9 % (18.3-44.2); Mean Corpuscular Hemoglobin 33.3 pg (26-34); Mean Corpuscular Volume 104.2 fl (80-100); Mean Platelet Volume 8.8 fl (7.4-10.4); Monocytes Absolute Auto 1.2 K/mm3 (0.1-0.6); Monocytes Percent Auto 11.5 % (2.6-8.5); Neutrophils Absolute Auto 7.1 K/mm3 (1.3-6.7); Neutrophils Percent Auto 70.4 % (45.5-73.1); Platelet Count Result 279 k/mm3 (150-375); Red Blood Count 4.26 M/mm3 (4.6-6.20); Red Cell Distribution Width 14.2 % (11.5-14.5); White Blood Count 10.1 K/mm3 (4.5-10.0)
[2023-11-03 05:22] LABS: Alanine Aminotransferase 16 U/L (6-50); Albumin Level 3.3 g/dL (3.5-5.1); Alkaline Phosphatase 70 U/L (38-126); Anion Gap 5 mmol/L (8-16); Aspartate Amino Transferase 28 U/L (17-59); Bilirubin,Total 1.5 mg/dL (0.2-1.3); Blood Urea Nitrogen 18 mg/dL (9-20); Calcium 8.3 mg/dL (8.4-10.2); Carbon Dioxide 32 mmol/L (22-30); Chloride 97 mmol/L (98-107); Estimated CRCL calculation 108 ml/min; Estimated Glomerular Filt Rate > 60; Glucose 97 mg/dL (65-110); Magnesium 2.2 mg/dL (1.6-2.3); Potassium 3.4 mmol/L (3.4-5.0); Sodium 134 mmol/L (137-145)
[2023-11-03 05:24] VITALS: BP 115/68; PULSE 51; RESP 14; TEMP 36.1; O2SAT 98
[2023-11-03 08:00] VITALS: PULSE 69; O2SAT 92
[2023-11-03 08:11] VITALS: PULSE 69
[2023-11-03] MEDS: FUROSEMIDE 40 MG TABLET PO ×2 (08:11→16:43)
[2023-11-03] MEDS: SPIRONOLACTONE 25 MG TABLET PO (08:11)
[2023-11-03] MEDS: POTASSIUM CHLORIDE 10 MEQ ER TABLET PO ×2 (08:11→16:42)
[2023-11-03] MEDS: METOPROLOL SUCCINATE EXT REL 25 MG TABCR PO (08:11)
[2023-11-03] MEDS: EMPAGLIFLOZIN 10 MG TABLET PO (08:11)
--- NOTE | 2023-11-03 09:14 | PM.IMPN ---
Progress Note: A&P Assessment and Plan (1) Atrial fibrillation: Code(s): I48.91 - Unspecified atrial fibrillation Status: Acute (2) Hypertension: Qualifiers: Hypertension type: primary hypertension Qualified Code(s): I10 - Essential (primary) hypertension Code(s): I10 - Essential (primary) hypertension Status: Acute (3) Scrotum swelling: Code(s): N50.89 - Other specified disorders of the male genital organs Status: Acute (4) Edema of abdomen: Code(s): R18.8 - Other ascites Status: Acute (5) Edema of both lower extremities: Code(s): R60.0 - Localized edema Status: Acute (6) CHF exacerbation: Code(s): I50.9 - Heart failure, unspecified Status: Acute Plan (1) acute diastolic heart failure Edema of abdomen: ?Code(s): R18.8 - Other ascites ?Status:?Acute ?Assessment and Plan: highly suspect new onset CHF.? BNP currently elevated at 2000.? CXR shows moderate interstitial edema and possible small bilateral effusions.? Echo cannot evaluate EF Started on Lasix 40 IVP Q12H.? cardiology consulted.? TSH normal.? A1c 5.9.? Lipid:? 111/29/64/77. ? MUGA scan showed EF of 59%.? Appreciate Cardiology recommendation.? Received IV diuresis, switched to oral Lasix 40 mg b.i.d. p.o. per Cardiology Home when okay with Cardiology New diagnosis AFib Rate is controlled Continue Topamax 25 mg daily p.o., Xarelto 20 mg daily p.o. per steward/stewardess room recommendation ROM Also has underlying sleep apnea and on CPAP at home. Started back on CPAP machine from home Tee removed today No dysuria (2) ? Suspect patient also has cocurrent cellulitis of the lower abdomen and scrotum.? Scrotum swelling: ?Code(s): N50.89 - Other specified disorders of the male genital organs ?Status:?Acute ?Assessment and Plan: Physical exam findings of scrotum consistent with cellulitis.? Started on Ancef.? Adding ESR and CRP to a.m. labs.? WBC mildly out of range at 10.4.? Continue to trend.? Adding Tee due to current inability to direct stream due to swelling, assisting with monitoring I&Os.? No current open wounds to culture.? On cefazolin which will be continued Switched to cefazolin to complete the course (3) Edema of both lower extremities: ?Code(s): R60.0 - Localized edema ?Status:?Acute ?Assessment and Plan: Likely due to acute on chronic diastolic congestive heart failure Improving (4) Hypertension: ?Qualifiers: ?Hypertension type:?primary hypertension? Qualified Code(s):?I10 - Essential (primary) hypertension ?Code(s): I10 - Essential (primary) hypertension ?Status:?Acute ?Assessment and Plan: Continue Toprol 25 mg daily p.o. Subjective Date/time seen: 11/03/23 09:14 Interval history: Patient is afebrile, blood pressure stable, patient walks without help, denies shortness breath, chest pain, no O2 desaturation Exam Narrative: GENERAL: Pleasant, in no acute distress. Well-nourished. - EYES: EOMI. Anicteric. - HENT: Moist mucous membranes. - LUNGS: Clear to auscultation bilaterally, no wheezing, rhonchi, or rales. - CARDIOVASCULAR: Irregular irregular rhythm. No murmur. No JVD. - ABDOMEN: Soft, non-tender and non-distended. No palpable masses. - EXTREMITIES: 2+ lower extremity edema. Peripheral pulses 2+. Non-tender. - NEUROLOGIC: No focal neurological deficits. CN II-XII grossly intact. - PSYCHIATRIC: Awake, Alert and oriented x 3. Appropriate mood and affect. - SKIN: No rashes or lesions. Warm. - LYMPH: No cervical lymphadenopathy. Objective Data Vital Signs Vital Signs: Vital Signs - 24 hr 11/02/23 14:00 11/02/23 21:13 11/02/23 20:00 Temperature 98.4 F 97.7 F Pulse Rate 74 72 Respiratory Rate 16 12 Blood Pressure 101/82 133/83 Pulse Oximetry 95 99 99 Oxygen Delivery Room Air 11/03/23 05:24 11/02/23 23:50 11/03/23 08:11 Temperature 96.9 F
--- NOTE | 2023-11-03 10:12 | PM.PNCARD ---
Progress Note: A&P Assessment and Plan (1) CHF exacerbation: Code(s): I50.9 - Heart failure, unspecified Status: Acute Assessment and Plan: Diastolic heart failure. Echo unable to estimate left ventricular systolic function because of body habitus. Therefore, MUGA scan was ordered and showed LVEF 59%. He diuresed 26 L on IV Lasix, with net negative for hospitalization -18 L. Transitioned to PO Lasix on 11/02. Weight loss Needs outpatient sleep study. Okay for discharge home from a cardiology standpoint. Patient to be discharged on Lasix 40mg BID, Jardiance 10mg daily, Spironolactone 25mg daily, Toprol 25mg daily. (2) Atrial fibrillation: Code(s): I48.91 - Unspecified atrial fibrillation Status: Acute Assessment and Plan: This is a new diagnosis. Chronicity unknown. He is rate controlled He has a CHADS2 Vasc score of 2 (CHF, HTN). Continue systemic anticoagulation with Xarelto 20mg daily Can consider outpatient cardioversion after he has been anticoagulated for at least 4 weeks. Continue Toprol for rate control. Needs an outpatient sleep study. Okay to discharge home from a cardiology standpoint. Patient to be discharged on Toprol 25mg QD, Xarelto 20mg daily. (3) Hypertension: Qualifiers: Hypertension type: primary hypertension Qualified Code(s): I10 - Essential (primary) hypertension Code(s): I10 - Essential (primary) hypertension Status: Acute Assessment and Plan: Continue Toprol, Spironolactone. Plan Okay to discharge home from a cardiology standpoint. Recommendations and plan discussed with Hospitalist. Subjective Date/time seen: 11/03/23 10:12 Interval history: Reason for visit: Congestive heart failure, atrial fibrillation HPI: Ming Copeland is a 52 year old male with hypertension.? He is admitted to the hospital with a chief complaint of bilateral lower extremity edema.? He also has cellulitis of the lower abdomen.? He has been experiencing bilateral lower extremity swelling for the past two months.? He also endorses shortness of breath.? He denies any chest pain, palpitations, syncope, pre-syncope, orthopnea, or paroxysmal nocturnal dyspnea.? He has been started on IV furosemide and reports improvement in his swelling.? EKG and telemetry demonstrate atrial fibrillation with controlled ventricular response.? He denies any history of atrial fibrillation or any arrhythmia.? At the time of my visit with him he is lying flat in bed breathing comfortably on room air and has no complaints.? Date of service 10/29: He feels better today.? Swelling is improving.? No shortness of breath, palpitations, chest pain Date of service 10/30: Diuresing well. Feeling better, has improvement in swelling. Date of service 11/01: Feeling better. Leg swelling is getting better. Date of service 11/02/23: Feels well today. No complaints. Swelling continues to improve. Date of service 11/03: Feeling well. No complaints. Continues to have good urine output on PO Lasix. Review of Systems Review of Systems: All systems reviewed & are unremarkable except as noted in HPI and below (HPI) Exam Const: General: comfortable and no acute distress Other: Morbidly obese Eyes: General: appearance normal, both eyes and all related structures Sclera: sclerae normal Resp: Effort & Inspection: normal respiratory effort Cardio: Rhythm: abnormal rhythm irregularly irregular Other: Bilateral lower extremity swelling that has significantly improved Neuro: Speech: normal speech Psych: Mental Status: mental status grossly normal Affect: normal affect Objective Data Vital Signs Vital Signs: Vital Signs - 24 hr 11/02/23 14:00 11/02/23 21:13 11/02/23 20:00 Temperature 36.9 C 36.5 C Pulse Rate 74 72 Respiratory Rate 16 12 Blood Pressure 101/82 133/83 Pulse Oximetry 95 99 99 Oxygen Delivery Room Air 11/03/23 05:24 11/02/23 23:50 11/03/23
[2023-11-03 14:00] VITALS: BP 115/58; PULSE 62; RESP 16; TEMP 36.4; O2SAT 97
[2023-11-03] MEDS: RIVAROXABAN 20 MG TABLET PO (16:43)
--- NOTE | 2023-11-03 16:47 | PM.DS ---
DS: Admitting Diagnosis Discharge Date 11/03/23 Admitting Diagnosis (1) Atrial fibrillation: ?Code(s): I48.91 - Unspecified atrial fibrillation ?Status:?Acute (2) Hypertension: ?Qualifiers: ?Hypertension type:?primary hypertension? Qualified Code(s):?I10 - Essential (primary) hypertension ?Code(s): I10 - Essential (primary) hypertension ?Status:?Acute (3) Scrotum swelling: ?Code(s): N50.89 - Other specified disorders of the male genital organs ?Status:?Acute (4) Edema of abdomen: ?Code(s): R18.8 - Other ascites ?Status:?Acute (5) Edema of both lower extremities: ?Code(s): R60.0 - Localized edema ?Status:?Acute (6) CHF exacerbation: ?Code(s): I50.9 - Heart failure, unspecified ?Status:?Acute DS: Discharge Diagnosis Discharge Diagnosis (1) Atrial fibrillation: Code(s): I48.91 - Unspecified atrial fibrillation Status: Acute (2) Hypertension: Qualifiers: Hypertension type: primary hypertension Qualified Code(s): I10 - Essential (primary) hypertension Code(s): I10 - Essential (primary) hypertension Status: Acute (3) Scrotum swelling: Code(s): N50.89 - Other specified disorders of the male genital organs Status: Acute (4) Edema of abdomen: Code(s): R18.8 - Other ascites Status: Acute (5) Edema of both lower extremities: Code(s): R60.0 - Localized edema Status: Acute (6) CHF exacerbation: Code(s): I50.9 - Heart failure, unspecified Status: Acute DS: Summary Hospital Course Hospital Course: Per H&P, 52 y/o M presents here with increasing swelling with PMH of HTN (not on medications). Patient reports that he has been experiencing bilateral lower extremity edema chronically for the last 3-4 months.? Initially attributed this swelling due to being on his feet for long periods of and standing long periods of of time at his job - currently works as a cook.? Then in the last 1-1.5 weeks he began noticing lower abdominal swelling which then progressed to scrotal swelling in the last 2-3 days. Reports difficulty with urination related to the severity of swelling and inability to aim, has had to urinate in the shower.? Reports mild shortness of breath at baseline, typically worsens with cold weather but denies any recent increase.? Also denies chest pain or palpitations.? Reports a history of high blood pressure, not currently on medications.? No other past medical history.? ED workup revealed WBC of 10.4, hgb normal at 14.4, mild hypercapnia, mild hypocalcemia, elevated proBNP 2110.? CXR showed moderate interstitial edema and possible small bilateral effusions.? US of BLE showed no DVT, limited study. The following medical issues have been addressed during hospitalization (1) acute diastolic heart failure ?Edema of abdomen: ?Code(s): R18.8 - Other ascites ?Status:?Acute ?Assessment and Plan: highly suspect new onset CHF.? BNP currently elevated at 2000.? CXR shows moderate interstitial edema and possible small bilateral effusions.? ?Echo cannot evaluate EF ?Started on Lasix 40 IVP Q12H.? cardiology consulted.? TSH normal.? A1c 5.9.? Lipid:? 111/29/64/77. ? MUGA scan showed EF of 59%.? Appreciate Cardiology recommendation.? Received IV diuresis, switched to oral Lasix 40 mg b.i.d. p.o. per Cardiology Home when okay with Cardiology New diagnosis AFib Rate is controlled Continue Topamax 25 mg daily p.o., Xarelto 20 mg daily p.o. per floor representative recommendation ROM Also has underlying sleep apnea and on CPAP at home. Started back on CPAP machine from home Tee removed today No dysuria (2) ? Suspect patient also has cocurrent cellulitis of the lower abdomen and scrotum.? Scrotum swelling: ?Code(s): N50.89 - Other specified disorders of the male genital organs ?Status:?Acute ?Assessment and Plan: Physical exam findings of scrotum consis
--- NOTE | 2023-11-09 12:23 | IVDEFINITY ---
Prior to administration of IV Definity the patient was educated on the risks and benefits of the imaging enhancing agent including potential adverse side effects. The patient verbalized understanding. Allergies were verified. No exclusion criteria were identified and at least one of the following inclusion criteria were met: 1) physician request, 2) patient technically difficult to image (per the [place] [employer] guidelines of two or more segments not discernable within the apical view), or 3) questionable left ventricular function. ?
== END 2023-11-03 18:00 | disposition home or self-care (01) | DRG 194 ==
LOC: ANHED 18:10 → ANH3MEDSUR 18:32
PROVIDERS: Internal Medicine; Student in an Organized Health Care Education/Training Program; Admitting Provider Family Medicine; Emergency Provider Emergency Medicine; PCP Emergency Medicine; Visit Provider Hospitalist
DX: I11.0 Hypertensive heart disease with heart failure (principal); I50.31 Acute diastolic (congestive) heart failure; I48.91 Unspecified atrial fibrillation; N49.2 Inflammatory disorders of scrotum; R39.198 Other difficulties with micturition; R60.0 Localized edema; E66.01 Morbid (severe) obesity due to excess calories; G47.33 Obstructive sleep apnea (adult) (pediatric); Z68.43 Body mass index [BMI] 50.0-59.9, adult; Z87.891 Personal history of nicotine dependence; Z99.89 Dependence on other enabling machines and devices
CPT/HCPCS: 36415; 36569; 71045; 78472; 80048; 80053; 80061; 83036; 83735; 83880; 84443; 85025; 85610; 85652; 85730; 86140; 93005; 93970; 96365; 96372; 96375; 96376; 99285; A9270; A9560; C1751; C8929; G0378; G0379; J0690; J1650; J1940; Q9957

== ENCOUNTER 2024-01-24 15:44 | Observation (INO) | payer OTHER, SELFPAY ==
[2024-01-24] VITALS (8 sets, daily range): BP systolic 95–135; BP diastolic 65–90; PULSE 65–85; RESP 12–20; TEMP 36.3–36.7; O2SAT 96–100; BMI 50.3
--- NOTE | ~2024-01-24 | XR_ITS ---
EXAMINATION: XR chest 1V portable INDICATION: Transient alteration of awareness TECHNIQUE: Portable AP chest at 1811 hours COMPARISON: 10/30/2023 FINDINGS: Cardiomegaly is noted. There is a mild diffuse interstitial pattern. No pleural effusion or pneumothorax. IMPRESSION: 1. Diffuse interstitial opacities, consistent with pulmonary edema versus pneumonia. 2. Cardiomegaly. Reviewed, dictated and finalized at location F. IMPRESSION: 1. Diffuse interstitial opacities, consistent with pulmonary edema versus pneum onia. 2. Cardiomegaly.
--- NOTE | ~2024-01-24 | CT_ITS ---
EXAMINATION: CT brain wo con, CT facial bones wo con DATE: 01/24/2024 16:43 INDICATION: Fall post seizure with head injury TECHNIQUE: 1. Computed tomography (CT) of the head was performed without intravenous contrast. Sagittal and faiza nal reconstructions were obtained. The mA was adjusted according to patient size. Iterative reconstru ction technique was employed. The dose-length product was 681.00 mGy-cm. 2. CT of the facial bones and maxillofacial region was performed without intravenous contrast. Sagitt al and coronal reconstructions were obtained. Automated exposure control and iterative reconstruction technique were employed. The dose-length product was 1036.15 mGy-cm. COMPARISON: None. FINDINGS: Head CT: No calvarial fracture. Acute intracranial hemorrhage, acute infarction or abnormal extra axial fluid collection. Symmetric prominence of the sulci and subarachnoid spaces overlying the convexities consi stent with mild age-appropriate diffuse cerebral volume loss. Ventricles are normal and symmetric. No mass/mass effect. Mastoid air cells and middle ear cavities are clear. Maxillofacial CT: No acute maxillofacial fractures identified. Specifically the nasal bones, zygomatic arches, franco of the orbits and paranasal sinuses are all intact. Normal alignment at the temporal mandibular joints with mild bilateral osteoarthritis but no mandibular fracture. Bilateral orbits are normal. Small eugenio unt of dependently layering low-density mucus in the left sphenoid sinus. Mild mucosal thickening in the left maxillary sinus. Osteoma in the right frontoethmoidal recess. Dental disease with several ab sent teeth and multiple dental caries. There are also periapical lucencies at the 2 posterior most re maining left mandibular molars and at the right maxillary canine and first bicuspid. Mild to moderate cervical spondylosis. IMPRESSION: 1. No acute calvarial or maxillofacial fractures. 2. Mild age-appropriate diffuse volume loss. No acute intracranial process. Reviewed, dictated and finalized at location A. IMPRESSION: 1. No acute calvarial or maxillofacial fractures. 2. Mild age-appropriate diffuse volume loss. No acute intracranial process.
--- NOTE | ~2024-01-24 | CT_ITS ---
EXAMINATION: CTA chest PE protocol DATE: 01/25/2024 13:18 INDICATION: Leukocytosis. Elevated d-dimer. TECHNIQUE: Computed tomography (CT) pulmonary angiogram of the chest was performed with 100 mL Omnipa que-350 intravenous contrast. Additional 3D reconstructions utilizing coronal maximum intensity proje ction (MIP) were performed. Automated exposure control and iterative reconstruction technique were em ployed. The dose-length product was 1000.02 mGy-cm. COMPARISON: None FINDINGS: No pulmonary embolism. Sensitivity decreased in some of the smaller subsegmental pulmonary arteries a t the lung bases due to mild respiratory motion artifact. Linear discoid atelectasis in the basilar l eft lower lobe. And in the lingula. No pneumonia, pulmonary edema, pleural effusion or pneumothorax. Heart size is normal. No pericardial effusion. Atherosclerotic coronary artery calcific lesion. Thora cic aorta is normal in caliber with no dissection. No pathologically enlarged thoracic lymphadenopath y. Couple low-attenuation left adrenal adenomas the larger measuring 1.9 cm. Mild thoracic spondylosi s with bridging osteophytes at multiple levels consistent with diffuse idiopathic skeletal hyperostos is (DISH). IMPRESSION: 1. No pulmonary embolism or other acute cardiopulmonary disease. Reviewed, dictated and finalized at location A.
--- NOTE | ~2024-01-24 | CT_ITS ---
EXAMINATION: CT abdomen pelvis w con INDICATION: Periumbilical abdominal pain TECHNIQUE: Computed tomographic images of the abdomen and pelvis were obtained after the administrati on of 100 cc of Omnipaque 350 intravenous contrast. The dose-length product (DLP) was 1640.95 mGy-cm. Automated exposure control and iterative reconstruction technique were employed. COMPARISON: None available FINDINGS: Minimal dependent atelectasis is present in the lung bases. The heart size is normal. There are healed lower rib fractures. Calcified coronary artery atherosclerosis is noted. The liver, splee n, pancreas, and gallbladder are normal. There is a 2 cm mass of the left adrenal gland. There is a 1 .0 cm mass of the right adrenal gland. The kidneys are unremarkable. The appendix is normal. Colonic diverticulosis is noted. There is wall thickening of the proximal sigmoid colon. There is mild bilate ral common and external iliac chain lymphadenopathy. There are bridging osteophytes at multiple level s in the thoracic spine, consistent with diffuse idiopathic skeletal hyperostosis (DISH). There is mo derate lumbar spondylosis. No free intraperitoneal gas or evidence of bowel obstruction. IMPRESSION: 1. Colonic diverticulosis with mild wall thickening of the proximal sigmoid colon. Finding could refl ect acute diverticulitis however underlying neoplasm could have a similar appearance. Recommend corre lation with colonoscopy history or direct visualization if not yet performed. 2. Pelvic lymphadenopathy which may be reactive or metastatic. Reviewed, dictated and finalized at location F. IMPRESSION: 1. Colonic diverticulosis with mild wall thickening of the proximal sigmoid col on. Finding could reflect acute diverticulitis however underlying neoplasm coul d have a similar appearance. Recommend correlation with colonoscopy history or direct visualization if not yet performed. 2. Pelvic lymphadenopathy which may be reactive or metastatic.
--- NOTE | ~2024-01-24 | MR_ITS ---
EXAMINATION: MR brain/brain stem wo/w con DATE: 01/25/2024 08:58 INDICATION: Seizure. TECHNIQUE: Magnetic resonance imaging (MRI) of the brain and brainstem was performed without and with 20 mL MultiHance intravenous contrast. COMPARISON: Head CT 01/24/2024 FINDINGS: There is no intracranial hemorrhage, acute infarction, or abnormal intracranial mass lesion . There is an old lacunar infarct in left thalamus. The ventricles are normal in size. There is mild mucosal thickening in the ethmoid sinuses. The orbits are normal. There are trace bilateral mastoid e ffusions. IMPRESSION: 1. Old lacunar infarct in left thalamus. Reviewed, dictated and finalized at location E.
--- NOTE | 2024-01-24 15:49 | ECG_ITS ---
Measurements Intervals [place] Rate: 82 P: [place]: 0 QRS: 40 QRSD: 101 T: 48 QT: 407 QTc: 478 Interpretive Statements ATRIAL FLUTTER/TACHYCARDIA LOW QRS VOLTAGE IN PRECORDIAL LEADS INCOMPLETE RIGHT BUNDLE BRANCH BLOCK ANTERIOR INFARCT, AGE INDETERMINATE BASELINE ARTIFACT- I, II, III, AVR, AVL, AVF, V1 ABNORMAL ECG COMPARED TO ECG 10/27/2023 15:39:47 Electronically Signed On 01-24-2024 16:56:15 CDT by Sundar Dumas D.O.
[2024-01-24 16:14] LABS: Glucose Point of Care 150 mg/dl (65-105)
[2024-01-24 16:14] LABS: Glucose Point of Care 151 mg/dl (65-105)
[2024-01-24 16:21] LABS: Basophils Absolute Auto 0.1 K/mm3 (0.0-0.1); Basophils Percent Auto 0.5 % (0.2-1.2); Eosinophils Absolute Auto 0.1 K/mm3 (0-0.3); Eosinophils Percent Auto 0.7 % (0-4.4); Hematocrit 44.7 % (42.0-52.0); Hemoglobin 14.9 g/dL (14.0-18.0); Immature Granulocyte Absolute 0.13 K/mm3 (0.00-0.031); Immature Granulocyte Percent A 0.8 % (0-0.5); Lymphocytes Absolute Auto 2.31 K/mm3 (0.9-3.2); Lymphocytes Percent Auto 13.6 % (18.3-44.2); Mean Corpuscular HGB Conc 33.3 g/dl (32-36); Mean Corpuscular Hemoglobin 31.8 pg (26-34); Mean Corpuscular Volume 95.3 fl (80-100); Mean Platelet Volume 8.7 fl (7.4-10.4); Monocytes Percent Auto 5.8 % (2.6-8.5); Neutrophils Absolute Auto 13.3 K/mm3 (1.3-6.7); Neutrophils Percent Auto 78.6 % (45.5-73.1); Platelet Count Result 338 k/mm3 (150-375); Red Blood Count 4.69 M/mm3 (4.6-6.20); Red Cell Distribution Width 14.5 % (11.5-14.5)
[2024-01-24 16:32] LABS: Prothrombin Time 13.6 Seconds (11.1-14.7)
[2024-01-24 16:33] LABS: Partial Thromboplastin Time 31.6 Seconds (22.3-36.8)
[2024-01-24 16:41] LABS: Alanine Aminotransferase 12 U/L (6-50); Albumin Level 3.7 g/dL (3.5-5.1); Alkaline Phosphatase 86 U/L (38-126); Anion Gap 6 mmol/L (8-16); Aspartate Amino Transferase 19 U/L (17-59); Bilirubin,Total 1.2 mg/dL (0.2-1.3); Blood Urea Nitrogen 15 mg/dL (9-20); Calcium 8.6 mg/dL (8.4-10.2); Carbon Dioxide 32 mmol/L (22-30); Chloride 97 mmol/L (98-107); Estimated CRCL calculation 101 ml/min; Estimated Glomerular Filt Rate > 60; Glucose 144 mg/dL (65-110); Potassium 2.7 mmol/L (3.4-5.0); Sodium 135 mmol/L (137-145)
[2024-01-24 16:43] LABS: Troponin I 0.021 ng/mL (0.000-0.034)
[2024-01-24 17:12] LABS: Lactic Acid Reflex 1.9 mmol/L (0.7-2.0)
[2024-01-24 17:17] LABS: Magnesium 2.1 mg/dL (1.6-2.3)
[2024-01-24] MEDS: POTASSIUM CHLORIDE INJ 40 MEQ in SODIUM CHLORIDE 0.9% IV 500 ML 130 MEQ IVPB (17:25)
[2024-01-24] MEDS: SODIUM CHLORIDE 0.9% IV 1,000 ML 999 ML IV CONT (17:25)
--- NOTE | 2024-01-24 17:54 | ED.SEIZURE ---
HPI - Seizure General Chief Complaint: Seizure <VERÓNICA Ventura Last Filed: 01/24/24 22:22> Stated Complaint: syncopal/SZ/low blood pressure/low glucose <Julee Norton PA-C - Last Filed: 01/24/24 22:22> Time Seen by Provider: 01/24/24 16:58 <VERÓNICA Ventura Last Filed: 01/24/24 22:22> Source: patient and EMS <VERÓNICA Ventura Last Filed: 01/24/24 22:22> Mode of arrival: EMS <VERÓNICA Ventura Last Filed: 01/24/24 22:22> Limitations: no limitations <VERÓNICA Ventura Last Filed: 01/24/24 22:22> History of Present Illness HPI Narrative: Patient is a 53-year-old male who presents the ED via EMS with report of seizure-like activity. patient states he was gambling today and sitting at a machine when he began feeling some abdominal discomfort, had cold sweats. The next thing he knew he was lying on the ground. Per EMS report, patient was noted to have seizure-like activity. Upon their arrival his blood sugar was 35. He had another episode of witnessed seizure-like activity in front of EMS. He was then transported here. Given D10 en route. Blood sugar upon arrival 151. Patient denies previous history of hypoglycemia. Denies history of DM. States he otherwise felt fine today. Ate breakfast, did not eat lunch. Complains of some periumbilical abdominal pain currently, denies nausea, vomiting, diarrhea, constipation, fevers, cough or cold symptoms, headache, dizziness, chest pain, shortness of breath. Patient reports he was admitted to the hospital here at the end of October and diagnosed with atrial fibrillation. He was started on Xarelto at that time, but states he was unable to afford this and had issues with his insurance so he has not been on any blood thinners. <VERÓNICA Ventura Last Filed: 01/24/24 22:22> Related Data Allergies/Adverse Reactions: Allergies Allergy/AdvReac Type Severity Reaction Status Date / Time No Known Allergies Allergy Verified 10/27/23 15:21 <Julee Norton PA-C - Last Filed: 01/24/24 22:22> Review of Systems Review of Systems: CONSTITUTIONAL: Denies fever, chills, or sweats. CARDIOVASCULAR: Denies chest pain, palpitations, or edema. RESPIRATORY: Denies cough or dyspnea. GASTROINTESTINAL: See HPI MUSCULOSKELETAL: Denies back pain, extremity pain, myalgia. NEUROLOGIC: See HPI. <Julee Norton PA-C - Last Filed: 01/24/24 22:22> All systems reviewed & are unremarkable except as noted in HPI and below <Julee Norton PA-C - Last Filed: 01/24/24 22:22> [facility] Past Medical History Medical History: Medical History (Updated 01/24/24 @ 22:15 by Julee Norton PA-C) Atrial fibrillation Hypertension Morbid obesity <Julee Norton PA-C - Last Filed: 01/24/24 22:22> Surgical History Surgical History: Surgical History No pertinent past surgical history <Julee Norton PA-C - Last Filed: 01/24/24 22:22> Social History Social History: Social History Smoking packs per day: 0.5 Smoking cigarettes per day: 10.0 Smoking status: Former smoker Alcohol intake: never Substance use: never Do You Feel Safe in your Home?: Yes Lack of Transportation: No Lack of Food: Never True Current Housing: I Have Housing Concerned About Future Housing: No Difficulty Paying Gas/Electric Bills: No Difficulty Paying for Meds: YES Currently Unemployed: No Education: High School Diploma/GED Difficulty w/ Childcare or Family Care: No Gender identity (if verbalized by the patient): Male Spiritual care concerns: No <Julee Norton PA-C - Last Filed: 01/24/24 22:22> Exam Narrative: GENERAL: Well appearing, morbidly obese with BMI of 52.3, non-toxic, in no acute distress. H
[2024-01-24] MEDS: POTASSIUM CHLORIDE 20 MEQ ER TABLET 40 MEQ PO (18:32)
[2024-01-24 18:45] LABS: Glucose Point of Care 109 mg/dl (65-105)
--- NOTE | 2024-01-24 19:12 | ECG_ITS ---
Measurements Intervals [place] Rate: 69 P: [place]: 0 QRS: 15 QRSD: 101 T: 58 QT: 429 QTc: 463 Interpretive Statements ATRIAL FLUTTER/TACHYCARDIA LOW QRS VOLTAGE IN DIFFUSE LEADS INCOMPLETE RIGHT BUNDLE BRANCH BLOCK ANTERIOR INFARCT, AGE INDETERMINATE BORDERLINE ST-T WAVE ABNORMALITY- ANTEROLAT/HIGH LAT LEADS BASELINE ARTIFACT- AVR, AVL, AVF, V4-V6 ABNORMAL ECG COMPARED TO ECG 01/24/2024 15:54:20 NO SIGNIFICANT CHANGES Electronically Signed On 01-24-2024 19:38:46 CDT by Sundar Dumas D.O.
[2024-01-24 20:03] LABS: NT Pro B Type Natriuretic Pept 2460 pg/mL (19.9-100)
[2024-01-24] MEDS: metroNIDAZOLE 500 MG/ISO 100ML 500 MG/100 ML BAG 100 MG IVPB (20:18)
[2024-01-24 21:34] LABS: Glucose Point of Care 148 mg/dl (65-105)
--- NOTE | 2024-01-24 22:04 | ADMGEN ---
2200: This patient, Ming Copeland, was admitted to IMU Room 203-01. Patient/family oriented to hospital policies and general routines including ID bracelet, bed and alarms, visiting hours, pain management, procedures, bathroom and other care routines, personal items, smoking policy, room service/diet, and visiting hours. Information on how to activate the Rapid Response Team has been discussed. Patient/Family are encouraged to report perceived risks to care and to ask questions if they do not understand what they are told or what they should do.
[2024-01-24 22:17] LABS: Glucose Point of Care 196 mg/dl (65-105)
--- NOTE | 2024-01-24 22:25 | PM.IMHP ---
H&P: HPI History of Present Illness Date/Time: 01/24/24 22:25 Chief Complaint: seizure Narrative: this is a 53-year-old male with past medical history significant for obesity, atrial fibrillation. patient was brought to the emergency room after having episode of while at work where he passed out and he was witnessed to have seizure-like activity EMS was called and a 2nd seizure was witnessed. Blood sugar at that moment was 31. According to patient he has been his usual state of health he felt acute abdominal pain and near-syncope prior to this episode. Patient denies any chest pain, nausea, vomiting, diarrhea, no fevers, no rigors, no chills, no cough, no sputum production. Here preliminary workup showed a chest x-ray with lung infiltrates. Patient has been admitted for further evaluation management and treatment. EXAMINATION:? CT brain wo con, CT facial bones wo con DATE: 01/24/2024 16:43 INDICATION: Fall post seizure with head injury TECHNIQUE: 1. Computed tomography (CT) of the head was performed without intravenous contrast. Sagittal and coronal reconstructions were obtained. The mA was adjusted according to patient size. Iterative reconstruction technique was employed. The dose-length product was 681.00 mGy-cm. 2. CT of the facial bones and maxillofacial region was performed without intravenous contrast. Sagittal and coronal reconstructions were obtained. Automated exposure control and iterative reconstruction technique were employed. The dose-length product was 1036.15 mGy-cm. COMPARISON: None. FINDINGS: Head CT: No calvarial fracture. Acute intracranial hemorrhage, acute infarction or abnormal extra axial fluid collection. Symmetric prominence of the sulci and subarachnoid spaces overlying the convexities consistent with mild age-appropriate diffuse cerebral volume loss. Ventricles are normal and symmetric. No mass/mass effect. Mastoid air cells and middle ear cavities are clear. Maxillofacial CT: No acute maxillofacial fractures identified. Specifically the nasal bones, zygomatic arches, franco of the orbits and paranasal sinuses are all intact. Normal alignment at the temporal mandibular joints with mild bilateral osteoarthritis but no mandibular fracture. Bilateral orbits are normal. Small amount of dependently layering low-density mucus in the left sphenoid sinus. Mild mucosal thickening in the left maxillary sinus. Osteoma in the right frontoethmoidal recess. Dental disease with several absent teeth and multiple dental caries. There are also periapical lucencies at the 2 posterior most remaining left mandibular molars and at the right maxillary canine and first bicuspid. Mild to moderate cervical spondylosis. IMPRESSION: 1. No acute calvarial or maxillofacial fractures. 2. Mild age-appropriate diffuse volume loss. No acute intracranial process. EXAMINATION: XR chest 1V portable INDICATION: Transient alteration of awareness TECHNIQUE: Portable AP chest at 1811 hours COMPARISON: 10/30/2023 FINDINGS: Cardiomegaly is noted. There is a mild diffuse interstitial pattern. No pleural effusion or pneumothorax. IMPRESSION: 1. Diffuse interstitial opacities, consistent with pulmonary edema versus pneumonia. 2. Cardiomegaly. EXAMINATION: CT abdomen pelvis w con INDICATION: Periumbilical abdominal pain TECHNIQUE: Computed tomographic images of the abdomen and pelvis were obtained after the administration of 100 cc of Omnipaque 350 intravenous contrast. The dose-length product (DLP) was 1640.95 mGy-cm. Automated exposure control and iterative reconstruction technique were employed. COMPARISON: None available FINDINGS: Minimal dependent atelectasis is present in the lung bases. The heart size is normal. There are healed lower rib fractures. Calcified coronary artery atherosclerosis is noted. The liver, spleen, pancreas, and gallbladder are normal. There is a 2 cm mass of the left adrenal gland. There is a 1.0 cm mass of th
[2024-01-24 23:09] LABS: Troponin I 0.024 ng/mL (0.000-0.034)
[2024-01-25] VITALS (16 sets, daily range): BP systolic 137–155; BP diastolic 64–103; PULSE 63–78; RESP 12–22; TEMP 35.8–37; O2SAT 95–100
--- NOTE | 2024-01-25 | ECHO_ITS ---
Patient Info Name: Ming Copeland Age: 53 years : 1970 Gender: Male Ht: 68 in Wt: 321 lbs BSA: 2.72 m2 HR: 53 bpm BP: 141 / 95 mmHg Technical Quality: Good Exam Date: 01/25/2024 10:31 AM Exam Location: Echo Lab Patient Status: Inpatient Admit Date: 01/24/2024 Staff Ordering Physician: Kayla Mandel MD Architectural Representative: Bam Padgett RDCS Attending Provider: Kayla Mandel MD Referring Physician: Tequila TARANGO; Exam Type: CA echo dop color flow w con Study Info Indications - Elevated BNP Complete two-dimensional, color flow and Doppler transthoracic echocardiogram is performed with contrast to opacify the left ventricle and to improve the deliniation of the left ventricle endocardial borders. Contrast/Agitated Saline Contrast/Ag. Saline: Definity Amount: 6.00 ml Summary 1. Left ventricular chamber dimension is normal. 2. Left ventricular systolic function is normal, estimated at 60-65%. 3. There is mildly increased left ventricular wall thickness. 4. Right ventricular systolic function is normal. 5. Normal inferior vena cava with >50% collapse upon inspiration consistent with normal right atrial pressure, 3 mmHg. 6. No significant valvular disease. Left Ventricle Left ventricular chamber dimension is normal. Left ventricular systolic function is normal, estimated at 60-65%. There is mildly increased left ventricular wall thickness. Right Ventricle Right ventricular chamber dimension is normal. Right ventricular systolic function is normal. Left Atria Left atrial chamber dimension is normal. Right Atria Right atrial chamber dimension is normal. Atrial Septum Intact interatrial septum visualized by color flow imaging. Aortic Valve The aortic valve is probable trileaflet. There is no aortic valve stenosis. There is no aortic valve regurgitation. There is mild aortic valve calcification. Pulmonic Valve The pulmonic valve is not well visualized. Mitral Valve There is trace mitral valve regurgitation. The mitral valve annulus is mildly calcified. Tricuspid Valve There is trace tricuspid valve regurgitation. Pericardium/Pleural The pericardium appears epicardial fat pad. There is no pericardial effusion. Inferior Vena Cava Normal inferior vena cava with >50% collapse upon inspiration consistent with normal right atrial pressure, 3 mmHg. Aorta The aortic root size at the sinus of Valsalva is normal. Left Ventricular Outflow Tract Name Value Normal LVOT 2D LVOT Diameter 2.12 cm LVOT Doppler LVOT Peak Gradient 3 mmHg LVOT Mean Gradient 2 mmHg LVOT VTI 17.57 cm LVOT VTI/AV VTI Ratio 0.93 LVOT Stroke Volume 61.83 ml LVOT CO 4.06 l/min LVOT CI 1.49 L/min/m2 Pulmonic Valve Name Value Normal RVOT Doppler
[2024-01-25 00:14] LABS: Glucose Point of Care 125 mg/dl (65-105)
[2024-01-25 02:19] LABS: Glucose Point of Care 102 mg/dl (65-105)
[2024-01-25 05:19] LABS: Glucose Point of Care 109 mg/dl (65-105)
[2024-01-25] MEDS: metroNIDAZOLE 500 MG/ISO 100ML 500 MG/100 ML BAG 100 MG IVPB ×3 (05:27→21:03)
--- NOTE | 2024-01-25 05:40 | PC.NURSE ---
2200: Seizure precautions initiated.
--- NOTE | 2024-01-25 06:50 | PC.NURSE ---
Addendum entered by Miquel Salinas RN 01/25/24 06:51: Correction: MRI screening form complete and placed in chart. Original Note: MRI screening form complete and placed in charge.
[2024-01-25 07:12] LABS: Hematocrit 43.9 % (42.0-52.0); Hemoglobin 14.3 g/dL (14.0-18.0); Mean Corpuscular HGB Conc 32.6 g/dl (32-36); Mean Corpuscular Hemoglobin 31.4 pg (26-34); Mean Corpuscular Volume 96.5 fl (80-100); Mean Platelet Volume 8.6 fl (7.4-10.4); Platelet Count Result 315 k/mm3 (150-375); Red Blood Count 4.55 M/mm3 (4.6-6.20); Red Cell Distribution Width 14.6 % (11.5-14.5); White Blood Count 13.3 K/mm3 (4.5-10.0)
[2024-01-25 07:38] LABS: Anion Gap 6 mmol/L (8-16); Blood Urea Nitrogen 15 mg/dL (9-20); Calcium 8.6 mg/dL (8.4-10.2); Carbon Dioxide 30 mmol/L (22-30); Chloride 103 mmol/L (98-107); Estimated CRCL calculation 105 ml/min; Estimated Glomerular Filt Rate > 60; Glucose 103 mg/dL (65-110); Magnesium 2.3 mg/dL (1.6-2.3); Phosphorus 3.3 mg/dL (2.5-4.5); Potassium 2.9 mmol/L (3.4-5.0); Sodium 139 mmol/L (137-145)
[2024-01-25 08:27] LABS: Glucose Point of Care 106 mg/dl (65-105)
--- NOTE | 2024-01-25 09:02 | P.PNIM_ITS ---
Progress Note: A&P Assessment and Plan (1) Abdominal pain: Code(s): R10.9 - Unspecified abdominal pain Status: Acute Assessment and Plan: CT abdomen and pelvis with concerns for possible diverticulitis versus u nderlying neoplasm. He also has pelvic lymphadenopathy which could be reactive versus metastatic. * Will need colonoscopy in 6 weeks to r/o malignancy * Started on Rocephin and Flagyl * Pain control with [place] pain 4-6, morphine 2 mg pain 7-10 * Bentyl p.r.n. for cramping * Surgery was consulted and recommendations are appreciated * He was not NPO this morning and tolerated his breakfast without pain, nausea, vomiting. * Likely will be able to transition to PO abx for diverticulitis tomorrow (2) Diverticulitis: Code(s): K57.92 - Diverticulitis of intestine, part unspecified, without perforation or abscess without bleeding Status: Acute Assessment and Plan: See above (3) Seizure-like activity: Code(s): R56.9 - Unspecified convulsions Status: Acute Assessment and Plan: Witness seizure activity by EMS * No history of seizure disorder * Possibly syncopal episode with muscle contraction versus seizure * Was hypoglycemic at 31 * EEG ordered * MRI brain ordered * Neurology consult and recommendations are appreciated (4) Atrial fibrillation: Qualifiers: Atrial fibrillation type: paroxysmal Qualified Code(s): I48.0 - Paroxysmal atrial fibrillation Code(s): I48.91 - Unspecified atrial fibrillation Status: Acute Assessment and Plan: Recent diagnosis of atrial fibrillation * Rate controlled on metoprolol succinate 25 mg daily * He was discharge in November of this year on Xarelto but stopped taking it because his insurance was not covering * EKG on admission shows atrial flutter with a rate of 69, incomplete right bundle branch block, anterior infarct age indeterminate, borderline ST T-wave abnormality in the anterior lateral high lateral leads. * On telemetry * Metoprolol restarted * Plan to restart anticoagulation * D-dimer ordered given his syncopal episode and active AFib not on anticoagulation. * D-dimer positive, CTA negative for PE (5) Hypoglycemia: Code(s): E16.2 - Hypoglycemia, unspecified Status: Acute Assessment and Plan: Hemoglobin A1c 6%. Patient is not on diabetic regimen. * Hypoglycemia secondary to infectious process? * Leukocytosis of 17 on admission * He received D10 EN route * Blood sugars have remained stable the low 100's overnight * Change to ac/hs accu checks (6) Pneumonia: Code(s): J18.9 - Pneumonia, unspecified organism Status: Acute Assessment and Plan: Leukocytosis of 17 on admission. Chest x-ray with interstitial opacity. * He has no symptoms of pneumonia. Less likely diagnosis * Ordered CRP and procalcitonin * Suspect this is pulmonary edema seen on x-ray as BNP is elevated at 2400 * Currently on Rocephin and Flagyl for suspected abdominal infection * Blood cultures pending * mycoplasma IgM, Legionella urine and pneumococcal urine antigens pending (7) Hypokalemia: Code(s): E87.6 - Hypokalemia Status: Acute Assessment and Plan: Potassium 2.7 on admission * Potassium 2.9 this morning. Receiving a total of 80 mEq potassium today. (8) Malignancy: Code(s): C80.1 - Malignant (primary) neoplasm, unspecified Status: Acute Assessment and Plan: see 1 Subjective Date/time seen: 01/25/24 09:02 Interval history: This is a 53-yea
--- NOTE | 2024-01-25 09:02 | PM.IMPN ---
Progress Note: A&P Assessment and Plan (1) Abdominal pain: Code(s): R10.9 - Unspecified abdominal pain Status: Acute Assessment and Plan: CT abdomen and pelvis with concerns for possible diverticulitis versus underlying neoplasm. He also has pelvic lymphadenopathy which could be reactive versus metastatic. Will need colonoscopy in 6 weeks to r/o malignancy Started on Rocephin and Flagyl Pain control with [place] pain 4-6, morphine 2 mg pain 7-10 Bentyl p.r.n. for cramping Surgery was consulted and recommendations are appreciated He was not NPO this morning and tolerated his breakfast without pain, nausea, vomiting. Likely will be able to transition to PO abx for diverticulitis tomorrow (2) Diverticulitis: Code(s): K57.92 - Diverticulitis of intestine, part unspecified, without perforation or abscess without bleeding Status: Acute Assessment and Plan: See above (3) Seizure-like activity: Code(s): R56.9 - Unspecified convulsions Status: Acute Assessment and Plan: Witness seizure activity by EMS No history of seizure disorder Possibly syncopal episode with muscle contraction versus seizure Was hypoglycemic at 31 EEG ordered MRI brain ordered Neurology consult and recommendations are appreciated (4) Atrial fibrillation: Qualifiers: Atrial fibrillation type: paroxysmal Qualified Code(s): I48.0 - Paroxysmal atrial fibrillation Code(s): I48.91 - Unspecified atrial fibrillation Status: Acute Assessment and Plan: Recent diagnosis of atrial fibrillation Rate controlled on metoprolol succinate 25 mg daily He was discharge in November of this year on Xarelto but stopped taking it because his insurance was not covering EKG on admission shows atrial flutter with a rate of 69, incomplete right bundle branch block, anterior infarct age indeterminate, borderline ST T-wave abnormality in the anterior lateral high lateral leads. On telemetry Metoprolol restarted Plan to restart anticoagulation D-dimer ordered given his syncopal episode and active AFib not on anticoagulation. D-dimer positive, CTA negative for PE (5) Hypoglycemia: Code(s): E16.2 - Hypoglycemia, unspecified Status: Acute Assessment and Plan: Hemoglobin A1c 6%. Patient is not on diabetic regimen. Hypoglycemia secondary to infectious process? Leukocytosis of 17 on admission He received D10 EN route Blood sugars have remained stable the low 100's overnight Change to ac/hs accu checks (6) Pneumonia: Code(s): J18.9 - Pneumonia, unspecified organism Status: Acute Assessment and Plan: Leukocytosis of 17 on admission. Chest x-ray with interstitial opacity. He has no symptoms of pneumonia. Less likely diagnosis Ordered CRP and procalcitonin Suspect this is pulmonary edema seen on x-ray as BNP is elevated at 2400 Currently on Rocephin and Flagyl for suspected abdominal infection Blood cultures pending mycoplasma IgM, Legionella urine and pneumococcal urine antigens pending (7) Hypokalemia: Code(s): E87.6 - Hypokalemia Status: Acute Assessment and Plan: Potassium 2.7 on admission Potassium 2.9 this morning. Receiving a total of 80 mEq potassium today. (8) Malignancy: Code(s): C80.1 - Malignant (primary) neoplasm, unspecified Status: Acute Assessment and Plan: see 1 Subjective Date/time seen: 01/25/24 09:02 Interval history: This is a 53-year-old gentleman with a past medical history of hypertension, atrial fibrillation not on anticoagulation, and newly diagnosed CHF who presented in to the ER via EMS after passing out and having witness seizure like activity. Blood sugar was 31 on EMS arrival. Please see the remainder of the H&P for further details. 01/24: Ming is seen sitting on the edge of the bed in no acute distress. He states that yesterday he went to work and then
[2024-01-25] MEDS: POTASSIUM CHLORIDE 20 MEQ ER TABLET 40 MEQ PO ×2 (09:12→13:29)
[2024-01-25] MEDS: SPIRONOLACTONE 25 MG TABLET PO (09:13)
[2024-01-25] MEDS: METOPROLOL SUCCINATE EXT REL 25 MG TABCR PO (09:13)
[2024-01-25 09:50] LABS: CRP 3.2 mg/dL (<1.0)
[2024-01-25 10:28] LABS: D Dimer 0.82 ug/mL (<0.48)
--- NOTE | 2024-01-25 10:35 | PM.CNGS ---
Assessment and Plan Assessment and plan (1) Sigmoid diverticulitis: Code(s): K57.32 - Diverticulitis of large intestine without perforation or abscess without bleeding Status: Acute Assessment and Plan: CT reviewed and shows mild wall thickening of the sigmoid colon, which could be diverticulitis versus underlying neoplasm. No evidence of perforation or abscess. He is no longer having any abdominal pain and his abdominal exam is completely benign. He is already tolerating a regular diet this morning. Given his leukocytosis and recent abdominal pain, it is appropriate to treat this as acute uncomplicated diverticulitis with IV antibiotics and eventually transition to oral antibiotics on discharge. This would be his first episode of diverticulitis and he has never had a colonoscopy, therefore I also recommended that he eventually have a colonoscopy in about 6 weeks that would also rule out a possible malignancy. No indication for any urgent surgical intervention at this time. Continue with medical management and further work-up for his other acute issues. We will sign off at this time and can plan to set him up for a colonoscopy in about 6 weeks. Call with any surgical questions or concerns. (2) Seizure-like activity: Code(s): R56.9 - Unspecified convulsions Status: Acute Assessment and Plan: Brain MRI ordered today. He was recently diagnosed with atrial fibrillation about 3-4 months ago and stopped his anticoagulation. Neurology consulted. (3) Atrial fibrillation: Qualifiers: Atrial fibrillation type: paroxysmal Qualified Code(s): I48.0 - Paroxysmal atrial fibrillation Code(s): I48.91 - Unspecified atrial fibrillation Status: Acute Assessment and Plan: The patient stopped his anticoagulation that was prescribed in November due to cost. Not currently on any anticoagulation here and appears to be in atrial flutter on telemetry in the IMU. Management per primary service. (4) Hypokalemia: Code(s): E87.6 - Hypokalemia Status: Acute Assessment and Plan: Continue to replace as needed and monitor labs. (5) Hypoglycemia: Code(s): E16.2 - Hypoglycemia, unspecified Status: Acute Assessment and Plan: Blood glucose 35 on EMS arrival and has been stable since admission. No known history of diabetes. Hgb A1C 6.0 on admission. (6) Morbid obesity with BMI of 50.0-59.9, adult: Code(s): E66.01 - Morbid (severe) obesity due to excess calories; Z68.43 - Body mass index [BMI] 50.0-59.9, adult Status: Acute Plan I have discussed the patient's case and plan of care with Dr. Marie. History of Present Illness Consult details Consult date: 01/25/24 Reason for consult: other (Diverticulitis versus colon mass) Requesting physician: Kayla Mandel MD Narrative: This is a 53-year-old morbidly obese man with a history of hypertension, atrial fibrillation, and obstructive sleep apnea. Yesterday, the patient had a sudden onset of lower abdominal pain while sitting at a gambling machine. He had associated chills and felt lightheaded. He tried getting up from a seated position and reportedly passed out. EMS was called for reported seizure-like activity. In his electronic medical record, upon EMS arrival his blood sugar was found to be 35 and he had another episode of seizure-like activity in front of EMS. He was given D10 and brought into the ER for evaluation. No reported history of hypoglycemia or diabetes. He did have lower abdominal pain after passing out that eventually resolved while in the ER. He subsequently had a CT scan of the abdomen and pelvis that showed colonic diverticulosis with mild wall thickening of the proximal sigmoid colon that could reflect acute diverticulitis versus underlying neoplasm, as well as pelvic lymphadenopathy that could be reactive or metastatic. CT of the head and face were negative for any acute findings. Chest x-
[2024-01-25 10:48] LABS: Procalcitonin 0.1 ng/mL
[2024-01-25] MEDS: PERFLUTREN LIPID MICROSPHERES 1.5 ML VIAL DILUTED TO 10 ML TOTAL VOLUME IV PUSH (11:15)
--- NOTE | 2024-01-25 11:56 | IVDEFINITY ---
Prior to administration of IV Definity the patient was educated on the risks and benefits of the imaging enhancing agent including potential adverse side effects. The patient verbalized understanding. Allergies were verified. No exclusion criteria were identified and at least one of the following inclusion criteria were met: 1) physician request, 2) patient technically difficult to image (per the [place] [employer] guidelines of two or more segments not discernable within the apical view), or 3) questionable left ventricular function. ?
--- NOTE | 2024-01-25 12:19 | WPDNEURCNPN ---
Assessment and Plan Assessment and plan (1) Morbid obesity with BMI of 50.0-59.9, adult: Code(s): E66.01 - Morbid (severe) obesity due to excess calories; Z68.43 - Body mass index [BMI] 50.0-59.9, adult Status: Acute (2) Atrial fibrillation: Qualifiers: Atrial fibrillation type: paroxysmal Qualified Code(s): I48.0 - Paroxysmal atrial fibrillation Code(s): I48.91 - Unspecified atrial fibrillation Status: Acute (3) Seizure-like activity: Code(s): R56.9 - Unspecified convulsions Status: Acute Plan 1. Atrial fibrillation 2. Seizure disorder which could be secondary to hypoglycemia 3. Morbid obesity. Patient is already covered with ceftriaxone, receiving metoprolol and cardiology consult will be obtained in addition to the EEG. Consult date: 01/25/24 HPI: Ming Copeland is a 53 year old male admitted to the hospital through the emergency room via EMS for the seizure-like activity. Reportedly he was gambling and sitting at a machine when he felt abdominal discomfort and cold sweats and next thing he was lying on the ground per EMS report he was noted to have seizure-like activity but on arrival in the ER his blood sugar was 35 and he had another episode of witnessed seizure-like activity in front of the EMS he was then transferred to the hospital received D10 and blood sugar on arrival was 151 there was no history of previous hypoglycemia no history of diabetes mellitus he had been admitted to this hospital at the end of October when he was diagnosed to have atrial fibrillation and was started on Xarelto but as he was unable to afford the medication toe he has not been taking the medication. On initial exam in the emergency room it was documented he is never alcohol intake moreover substance user is a former smoker on examination except the morbid obesity BM 0.3 grossly nonfocal his vital signs were normal EKG revealed him to be in flutter Dr. Sims was contacted on telephone who ordered the MRI and EEG his routine labs with CBC WBC 17.0 and BMP with potassium of 2.7 and blood sugar of [address] scan of the head negative with no evidence of bleed CT scan cervical spine also negative for any fracture dislocation chest x-ray with cardiomegaly Review of Systems Review of Systems: All systems reviewed & are unremarkable except as noted in HPI and below [facility] Past Medical History Medical History Atrial fibrillation CHF (congestive heart failure) Hypertension Morbid obesity ROM (obstructive sleep apnea) Surgical History Surgical History No pertinent past surgical history Family History Family History Other Adopted Social History Social History Smoking packs per day: 0.5 Smoking cigarettes per day: 10.0 Smoking status: Former smoker Alcohol intake: never Substance use: never Do You Feel Safe in your Home?: Yes Lack of Transportation: No Lack of Food: Never True Current Housing: I Have Housing Concerned About Future Housing: No Difficulty Paying Gas/Electric Bills: No Difficulty Paying for Meds: YES Currently Unemployed: No Education: High School Diploma/GED Difficulty w/ Childcare or Family Care: No Gender identity (if verbalized by the patient): Male Spiritual care concerns: No Meds Home Medications and Allergies Home Medications Medication Instructions Recorded Confirmed Type furosemide 40 mg tablet 40 mg PO BID #60 tabs 11/03/23 01/24/24 Rx metoprolol succinate 25 mg 25 mg PO QAM #60 tabs 11/03/23 01/24/24 Rx tablet,extended release 24 hr (Toprol XL) spironolactone 25 mg tablet 25 mg PO QAM #30 tabs 11/03/23 01/24/24 Rx Allergies Allergy/AdvReac Type Severity Reaction Status Date / Time No Known Allergies Allergy Aron
[2024-01-25 13:28] LABS: Glucose Point of Care 124 mg/dl (65-105)
[2024-01-25 15:18] LABS: Bacteria Urine None Seen /hpf; RBC Urine 0-2 /hpf (0-2); Squamous Epithelial Cell Urine Occasional /hpf (Few); WBC Urine 0-5 /hpf (0-3)
[2024-01-25 15:28] LABS: Appearance Urine Clear (Clear); Glucose Urine UA Negative (Negative); Protein Urine 1+ mg/dL (Negative); Specific Grav Ur 1.015 (1.001-1.035); pH Urine 6.5 (5.0-9.0)
[2024-01-25 15:29] LABS: Bilirubin Urine 1+ (Negative); Blood Urine Negative (Negative); Ketones Urine Negative (Negative); Nitrate Urine Negative (Negative)
[2024-01-25 15:30] LABS: Leukocyte Esterase Ur Negative LEU/UL (Negative)
[2024-01-25 15:31] LABS: Add Urine Microscopic? YES; Color Urine Yellow (Yellow)
[2024-01-25 15:52] LABS: Glucose Point of Care 121 mg/dl (65-105)
[2024-01-25] MEDS: RIVAROXABAN 20 MG TABLET PO (18:31)
[2024-01-25 20:33] LABS: Glucose Point of Care 103 mg/dl (65-105)
[2024-01-26] VITALS (10 sets, daily range): BP systolic 124–148; BP diastolic 72–91; PULSE 49–92; RESP 14–20; TEMP 36.4–36.9; O2SAT 96–100
[2024-01-26] MEDS: metroNIDAZOLE 500 MG/ISO 100ML 500 MG/100 ML BAG 100 MG IVPB (05:38)
[2024-01-26 07:40] LABS: Glucose Point of Care 102 mg/dl (65-105)
[2024-01-26] MEDS: SPIRONOLACTONE 25 MG TABLET PO (08:36)
[2024-01-26] MEDS: METOPROLOL SUCCINATE EXT REL 25 MG TABCR PO (08:36)
--- NOTE | 2024-01-26 10:19 | WPDNEUROLOGY ---
Neurology EEG Report General Information Date of Study: 01/26/24 TEST eeg DIAGNOSIS Seizure-like activity CONDITION OF RECORDING awake drowsy and asleep EEG NUMBER 24-27 CLINICAL HISTORY patient reports he had a drop in his sugar and lost consciousness twice 2 days ago at present he feels fine EEG DESCRIPTION basic resting occipital frequency consists of low voltage 8 to 9 hertz per 2nd alpha admixed with low-voltage 15 to 18 hertz per 2nd beta with good anteroposterior gradient. Low-voltage beta activity seen diffusely admixed with waxing and waning posterior alpha rhythm and low-voltage beta activity during drowsiness. Bilateral symmetrical sleep activity is noted with symmetrical spindles during sleep. Hyperventilation not done. Photic stimulation not done. Non paroxysmal. Nonfocal. Nonlateralizing. IMPRESSION Normal record. Clinical correlation recommended.
[2024-01-26 11:38] LABS: Glucose Point of Care 110 mg/dl (65-105)
[2024-01-26 11:56] LABS: Hematocrit 45.5 % (42.0-52.0); Hemoglobin 14.5 g/dL (14.0-18.0); Mean Corpuscular HGB Conc 31.9 g/dl (32-36); Mean Corpuscular Hemoglobin 31.3 pg (26-34); Mean Corpuscular Volume 98.3 fl (80-100); Mean Platelet Volume 8.6 fl (7.4-10.4); Platelet Count Result 338 k/mm3 (150-375); Red Blood Count 4.63 M/mm3 (4.6-6.20); Red Cell Distribution Width 14.6 % (11.5-14.5)
[2024-01-26 12:12] LABS: Anion Gap 5 mmol/L (4-12); Blood Urea Nitrogen 18 mg/dL (9-20); Calcium 8.9 mg/dL (8.4-10.2); Carbon Dioxide 31 mmol/L (22-30); Chloride 101 mmol/L (98-107); Estimated CRCL calculation 105 ml/min; Estimated Glomerular Filt Rate > 60; Glucose 100 mg/dL (65-110); Potassium 3.5 mmol/L (3.4-5.0); Sodium 137 mmol/L (137-145)
[2024-01-26] MEDS: AMOXICILLIN/CLAVULANATE K 875-125 MG TAB 1 TABLET PO ×2 (12:39→20:35)
--- NOTE | 2024-01-26 15:32 | P.PNIM_ITS ---
Progress Note: A&P Assessment and Plan (1) Abdominal pain: Code(s): R10.9 - Unspecified abdominal pain Status: Acute Assessment and Plan: CT abdomen and pelvis with concerns for possible diverticulitis versus u nderlying neoplasm. He also has pelvic lymphadenopathy which could be reactive versus metastatic. * Will need colonoscopy in 6 weeks to r/o malignancy * Transition to Augmentin today * Pain control with [place] pain 4-6, morphine 2 mg pain 7-10 * Bentyl p.r.n. for cramping * Surgery was consulted and does not require surgical intervention, signed off * tolerated his breakfast without pain, nausea, vomiting. 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 * Neurology consulted (4) Atrial fibrillation: Qualifiers: Atrial fibrillation type: paroxysmal Qualified Code(s): I48.0 - Paroxysmal atrial fibrillation Code(s): I48.91 - Unspecified atrial fibrillation Status: Chronic Assessment and Plan: Recent diagnosis of atrial fibrillation * Rate controlled on metoprolol succinate 25 mg daily * He was discharge in November of this year on Xarelto but stopped taking it because his insurance was not covering * EKG on admission shows atrial flutter with a rate of 69, incomplete right bundle branch block, anterior infarct age indeterminate, borderline ST T-wave abnormality in the anterior lateral high lateral leads. * On telemetry * Metoprolol restarted * Plan to restart anticoagulation * D-dimer ordered given his syncopal episode and active AFib not on anticoagulation. * D-dimer positive, CTA negative for PE (5) Hypoglycemia: Code(s): E16.2 - Hypoglycemia, unspecified Status: Resolved Assessment and Plan: Hemoglobin A1c 6%. Patient is not on diabetic regimen. * Hypoglycemia secondary to infectious process? * Change to ac/hs accu checks (6) Pneumonia: Code(s): J18.9 - Pneumonia, unspecified organism Status: Acute Assessment and Plan: Leukocytosis of 17 on admission. Chest x-ray with interstitial opacity. * He has no symptoms of pneumonia. Less likely diagnosis * procal 0.1 * Suspect this is pulmonary edema seen on x-ray as BNP is elevated at 2400 * Transition to PO Augmentin * Blood cultures pending * mycoplasma IgM, Legionella urine and pneumococcal urine antigens pending (7) Hypokalemia: Code(s): E87.6 - Hypokalemia Status: Acute Assessment and Plan: s/p repletion * Potassium 3.5 today * continue to monitor (8) Malignancy: Code(s): C80.1 - Malignant (primary) neoplasm, unspecified Status: Acute Assessment and Plan: see above Subjective Date/time seen: 01/26/24 15:32 Interval history: Patient sitting on the edge of the bed in no acute distress. He denies chest pain or SOB. Denies abdominal pain, and tolerated eating some breakfast. He reports he can tell when he becomes hypoglycemic, but denies history of DM. Transition to PO Augmentin today. EEG normal. BS still pending. Plan for d/c if rem
--- NOTE | 2024-01-26 15:32 | PM.IMPN ---
Progress Note: A&P Assessment and Plan (1) Abdominal pain: Code(s): R10.9 - Unspecified abdominal pain Status: Acute Assessment and Plan: CT abdomen and pelvis with concerns for possible diverticulitis versus underlying neoplasm. He also has pelvic lymphadenopathy which could be reactive versus metastatic. Will need colonoscopy in 6 weeks to r/o malignancy Transition to Augmentin today Pain control with [place] pain 4-6, morphine 2 mg pain 7-10 Bentyl p.r.n. for cramping Surgery was consulted and does not require surgical intervention, signed off tolerated his breakfast without pain, nausea, vomiting. (2) Diverticulitis: Code(s): K57.92 - Diverticulitis of intestine, part unspecified, without perforation or abscess without bleeding Status: Acute Assessment and Plan: See above (3) Seizure-like activity: Code(s): R56.9 - Unspecified convulsions Status: Acute Assessment and Plan: Witness seizure activity by EMS No history of seizure disorder Possibly syncopal episode with muscle contraction versus seizure Was hypoglycemic at 31 EEG normal MRI brain showed no acute process, evidence of old infarct Neurology consulted (4) Atrial fibrillation: Qualifiers: Atrial fibrillation type: paroxysmal Qualified Code(s): I48.0 - Paroxysmal atrial fibrillation Code(s): I48.91 - Unspecified atrial fibrillation Status: Chronic Assessment and Plan: Recent diagnosis of atrial fibrillation Rate controlled on metoprolol succinate 25 mg daily He was discharge in November of this year on Xarelto but stopped taking it because his insurance was not covering EKG on admission shows atrial flutter with a rate of 69, incomplete right bundle branch block, anterior infarct age indeterminate, borderline ST T-wave abnormality in the anterior lateral high lateral leads. On telemetry Metoprolol restarted Plan to restart anticoagulation D-dimer ordered given his syncopal episode and active AFib not on anticoagulation. D-dimer positive, CTA negative for PE (5) Hypoglycemia: Code(s): E16.2 - Hypoglycemia, unspecified Status: Resolved Assessment and Plan: Hemoglobin A1c 6%. Patient is not on diabetic regimen. Hypoglycemia secondary to infectious process? Change to ac/hs accu checks (6) Pneumonia: Code(s): J18.9 - Pneumonia, unspecified organism Status: Acute Assessment and Plan: Leukocytosis of 17 on admission. Chest x-ray with interstitial opacity. He has no symptoms of pneumonia. Less likely diagnosis procal 0.1 Suspect this is pulmonary edema seen on x-ray as BNP is elevated at 2400 Transition to PO Augmentin Blood cultures pending mycoplasma IgM, Legionella urine and pneumococcal urine antigens pending (7) Hypokalemia: Code(s): E87.6 - Hypokalemia Status: Acute Assessment and Plan: s/p repletion Potassium 3.5 today continue to monitor (8) Malignancy: Code(s): C80.1 - Malignant (primary) neoplasm, unspecified Status: Acute Assessment and Plan: see above Subjective Date/time seen: 01/26/24 15:32 Interval history: Patient sitting on the edge of the bed in no acute distress. He denies chest pain or SOB. Denies abdominal pain, and tolerated eating some breakfast. He reports he can tell when he becomes hypoglycemic, but denies history of DM. Transition to PO Augmentin today. EEG normal. BS still pending. Plan for d/c if remains stable. Review of Systems Review of Systems: All systems reviewed & are unremarkable except as noted in HPI and below Exam Narrative: General: well appearing, well developed, well nourished, appears stated age. HEENT: normocephalic, atraumatic. Mucous membranes moist. EOMI, PERRLA Respiratory: clear to auscultation bilaterally. No rales/rhonic/wheezes. Cardiovascular: irregular rate and rhythm, normal S1-S2 Abd
[2024-01-26 15:57] LABS: Glucose Point of Care 111 mg/dl (65-105)
[2024-01-26] MEDS: RIVAROXABAN 20 MG TABLET PO (17:03)
[2024-01-26 21:09] LABS: Glucose Point of Care 110 mg/dl (65-105)
--- NOTE | 2024-01-26 23:14 | PC.NURSE ---
This patient, Ming Copeland, was transferred to [[id number] ] on 01/26/24 at 2315. Personal belongings sent with patient. Report given to [ Hetal bhagat]. Appropriate documentation sent with patient.
[2024-01-27 03:15] VITALS: RESP 14; O2SAT 98
[2024-01-27 06:29] VITALS: O2SAT 98
[2024-01-27 07:38] LABS: Basophils Absolute Auto 0.1 K/mm3 (0.0-0.1); Basophils Percent Auto 0.6 % (0.2-1.2); Eosinophils Absolute Auto 0.2 K/mm3 (0-0.3); Eosinophils Percent Auto 2.2 % (0-4.4); Hemoglobin 13.3 g/dL (14.0-18.0); Immature Granulocyte Absolute 0.08 K/mm3 (0.00-0.031); Immature Granulocyte Percent A 0.8 % (0-0.5); Lymphocytes Absolute Auto 2.06 K/mm3 (0.9-3.2); Lymphocytes Percent Auto 20.5 % (18.3-44.2); Mean Corpuscular HGB Conc 32.4 g/dl (32-36); Mean Corpuscular Hemoglobin 31.4 pg (26-34); Mean Corpuscular Volume 96.7 fl (80-100); Mean Platelet Volume 8.7 fl (7.4-10.4); Monocytes Absolute Auto 0.7 K/mm3 (0.1-0.6); Monocytes Percent Auto 6.5 % (2.6-8.5); Neutrophils Percent Auto 69.4 % (45.5-73.1); Platelet Count Result 297 k/mm3 (150-375); Red Blood Count 4.24 M/mm3 (4.6-6.20); Red Cell Distribution Width 14.5 % (11.5-14.5); White Blood Count 10.1 K/mm3 (4.5-10.0)
[2024-01-27 07:49] LABS: Anion Gap 2 mmol/L (4-12); Blood Urea Nitrogen 15 mg/dL (9-20); Calcium 8.7 mg/dL (8.4-10.2); Carbon Dioxide 31 mmol/L (22-30); Chloride 104 mmol/L (98-107); Estimated CRCL calculation 120 ml/min; Estimated Glomerular Filt Rate > 60; Glucose 104 mg/dL (65-110); Potassium 3.1 mmol/L (3.4-5.0); Sodium 137 mmol/L (137-145)
[2024-01-27 07:50] LABS: Glucose Point of Care 94 mg/dl (65-105)
[2024-01-27] MEDS: AMOXICILLIN/CLAVULANATE K 875-125 MG TAB 1 TABLET PO (08:02)
[2024-01-27 08:03] VITALS: PULSE 60
[2024-01-27] MEDS: METOPROLOL SUCCINATE EXT REL 25 MG TABCR PO (08:03)
[2024-01-27] MEDS: SPIRONOLACTONE 25 MG TABLET PO (08:04)
[2024-01-27] MEDS: POTASSIUM CHLORIDE 20 MEQ ER TABLET 40 MEQ PO (08:26)
[2024-01-27 12:13] LABS: Glucose Point of Care 101 mg/dl (65-105)
--- NOTE | 2024-01-27 13:31 | WPDNEUROPN ---
Subjective Date/time seen: 01/27/24 13:31 Interval history: Reviewed chart. Patient had an episode of possibly syncope vs seizure like activity, in the setting of hypoglycemia (glucose in 30s at the time). MRI brain and routine EEG is normal. No anti-seizure medications needed given first time episode, and thought to be provoked. Given episode of loss of consciousness, it is recommended that patient not drive until he is event free for at least 6 months. Discussed with hospitalist. Objective Data Vital Signs Vital Signs: Vital Signs - 24 hr 01/26/24 15:45 01/26/24 16:00 01/26/24 20:46 Temperature 36.7 C 36.9 C Pulse Rate 92 56 L 62 Respiratory Rate 17 20 Blood Pressure 131/76 137/85 Pulse Oximetry 99 100 Oxygen Delivery 01/26/24 20:00 01/26/24 23:55 01/26/24 22:41 Temperature 36.4 C L Pulse Rate 64 62 Respiratory Rate 20 14 14 Blood Pressure 148/91 H Pulse Oximetry 100 97 96 Oxygen Delivery Room Air Autopap 01/27/24 03:15 01/27/24 06:29 01/27/24 08:03 Temperature Pulse Rate 60 Respiratory Rate 14 Blood Pressure Pulse Oximetry 98 98 Oxygen Delivery Autopap Intake/Output Intake/Output: Intake & Output 01/24/24 01/25/24 01/26/24 01/27/24 23:59 23:59 23:59 23:59 Intake Total 1670 7860 408 0978 Output Total 1350 400 Balance 1670 728 196 6023 Meds/Results Medications: Active Medications Generic Name Dose Route Start Last Admin Trade Name Freq PRN Reason Stop Dose Admin Acetaminophen 650 mg 01/24/24 21:07 Acetaminophen 325 Mg Tablet PO Q4H PRN Mild Pain (1-3) or Fever Amoxicillin/Clavulanate Potassium 1 tablet 01/26/24 12:00 01/27/24 08:02 Amoxicillin/Clavulanate K 875-125 Mg Tab PO 1 tablet Q12HR KIMBERLY Administration Dextrose 12.5 gm 01/24/24 21:07 Dextrose 50% 25 Gm/50 Ml Syringe IV PUSH PRN PRN Hypoglycemia Protocol Dicyclomine HCl 20 mg 01/25/24 09:40 Dicyclomine Hcl 10 Mg Capsule PO QID PRN Abdominal Cramping Glucagon 1 mg 01/24/24 21:07 Glucagon For Inj 1 Mg Vial IM PRN PRN Hypoglycemia Protocol Glucose 15 gm 01/24/24 21:07 Glucose Oral Gel 15 Gm Of Glucse In 37.5 Gm Tube PO PRN PRN Hypoglycemia Protocol Dextrose 1,000 mls @ 100 mls/hr 01/24/24 21:07 Dextrose 5% 1,000 Ml IVPB PRN PRN Hypoglycemia Protocol Metoprolol Succinate 25 mg 01/25/24 09:00 01/27/24 08:03 Metoprolol Succinate Ext Rel 25 Mg Tabcr PO 25 mg QAM KIMBERLY Administration Morphine Sulfate 4 mg 01/25/24 09:37 Morphine Sulfate (*Crx) 4 Mg/Ml Inj IV PUSH Q4H PRN Pain Rated 7-10 Ondansetron HCl 4 mg 01/25/24 09:37 Ondansetron Inj 4 Mg/2 Ml Vial IV PUSH Q4H PRN Nausea And Vomiting Oxycodone/Acetaminophen 1 tablet 01/25/24 09:38 Oxycodone/Acetaminophen (*Crx) 5-325 Mg Tablet PO Q4H PRN Pain Rated 4-6 Rivaroxaban 20 mg 01/25/24 17:00 01/26/24 17:03 Rivaroxaban 20 Mg Tablet PO 20 mg DAILY@1700 [facility] Administration Spironolactone 25 mg 01/25/24 09:00 01/27/24 08:04 Spironolactone 25 Mg Tablet PO 25 mg QAM KIMBERLY Administration Radiology Results: ITS Impressions Face CT 01/24/24 17:00 IMPRESSION: 1. No acute calvarial or maxillofacial fractures. 2. Mild age-appropriate diffuse volume loss. No acute intracranial process. Head CT 01/24/24 17:00 IMPRESSION: 1. No acute calvarial or maxillofacial fractures. 2. Mild age-appropriate diffuse volume loss. No acute intracranial process. Chest X-Ray 01/24/24 19:25 IMPRESSION: 1. Diffuse interstitial opacities, consistent with pulmonary edema versus pneumonia. 2. Cardiomegaly. Abdomen/Pelvis CT 01/24/24 19:57 IMPRESSION: 1. Colonic diverticulosis with mild wall thickening of the proximal sigmoid colon. Finding could reflect acute diverticulitis however underlying neoplasm could have a similar appearance. Rec
[2024-01-27 14:00] VITALS: BP 148/81; PULSE 62; RESP 18; TEMP 36.7; O2SAT 100
[2024-01-27 14:12] LABS: Potassium 3.7 mmol/L (3.4-5.0)
--- NOTE | 2024-01-27 14:25 | PM.DS ---
DS: Admitting Diagnosis Discharge Date 01/27/24 Admitting Diagnosis abdominal pain, seizure DS: Discharge Diagnosis Discharge Diagnosis (1) Abdominal pain: Code(s): R10.9 - Unspecified abdominal pain Status: Resolved Assessment and Plan: CT abdomen and pelvis with concerns for possible diverticulitis versus underlying neoplasm. He also has pelvic lymphadenopathy which could be reactive versus metastatic. (2) Diverticulitis: Code(s): K57.92 - Diverticulitis of intestine, part unspecified, without perforation or abscess without bleeding Status: Acute Assessment and Plan: See above (3) Seizure-like activity: Code(s): R56.9 - Unspecified convulsions Status: Acute Assessment and Plan: Witness seizure activity by EMS No history of seizure disorder Possibly syncopal episode with muscle contraction versus seizure Was hypoglycemic at 31 EEG normal MRI brain showed no acute process, evidence of old infarct no driving for 6 months (4) Atrial fibrillation: Qualifiers: Atrial fibrillation type: paroxysmal Qualified Code(s): I48.0 - Paroxysmal atrial fibrillation Code(s): I48.91 - Unspecified atrial fibrillation Status: Chronic Assessment and Plan: Recent diagnosis of atrial fibrillation Rate controlled on metoprolol succinate 25 mg daily He was discharge in November of this year on Xarelto but stopped taking it because his insurance was not covering EKG on admission shows atrial flutter with a rate of 69, incomplete right bundle branch block, anterior infarct age indeterminate, borderline ST T-wave abnormality in the anterior lateral high lateral leads. restart anticoagulation D-dimer ordered given his syncopal episode and active AFib not on anticoagulation. D-dimer positive, CTA negative for PE (5) Hypoglycemia: Code(s): E16.2 - Hypoglycemia, unspecified Status: Resolved Assessment and Plan: Hemoglobin A1c 6%. Patient is not on diabetic regimen. (6) Pneumonia: Code(s): J18.9 - Pneumonia, unspecified organism Status: Acute Assessment and Plan: Leukocytosis of 17 on admission. Chest x-ray with interstitial opacity. He has no symptoms of pneumonia. Less likely diagnosis procal 0.1 Suspect this is pulmonary edema seen on x-ray as BNP is elevated at 2400 Transition to PO Augmentin Blood cultures pending mycoplasma IgM, Legionella urine and pneumococcal urine antigens pending (7) Hypokalemia: Code(s): E87.6 - Hypokalemia Status: Resolved Assessment and Plan: (8) Malignancy: Code(s): C80.1 - Malignant (primary) neoplasm, unspecified Status: Acute DS: Summary Hospital Course Reason for hospitalization: Hospital Course: Patient is a 53-year-old gentleman with a past medical history of hypertension, atrial fibrillation not on anticoagulation, and newly diagnosed CHF who admitted after passing out and having witness seizure like activity. Blood sugar was 31 on EMS arrival. Patient is not known diabetic, A1c was 6.0. CTA showed possible diverticulitis, gen surgery consulted and he did not require surgical intervention although colonoscopy outpatient was recommended. He has been treated for possible PNA coverage as well with PO Augmentin to be completed at home. Neurology consulted, MRI showed only only infarct and EEG was normal. Discussed with patient that he is not to [place]ve for 6 months and be event free prior to driving again. Will follow up on when final results. He is to restart his Xarelto with discount card. Discussed monitoring BS at home when he is feeling symptomatic. Patient is stable for d/c home today. Status at Discharge Functional status at discharge: independent ambulation Overall status at discharge: patient is back to baseline Time Spent with Patient Time attestation: Total time spent providing and/or coordinating discharge serv
[2024-01-28 00:31] LABS: Legionella pneumophila Ag Ur Not Detected (Not Detected)
[2024-01-28 01:27] LABS: Pneumococcal Antigen Urine Not Detected (Not Detected)
[2024-01-28 13:15] LABS: Mycoplasma IgM Antibody Titer 193 U/mL (<770)
== END 2024-01-27 15:40 | disposition home or self-care (01) ==
LOC: ANHED 21:28 → ANHIMU 22:20 → ANH3MEDSUR 01-27 08:28 → ANHIMU 01-28 07:54
PROVIDERS: Emergency Medicine; Nurse Practitioner; Nurse Practitioner Acute Care; Admitting Provider Internal Medicine; Emergency Provider Physician Assistant; PCP Student in an Organized Health Care Education/Training Program; Visit Provider Family Medicine
DX: E16.2 Hypoglycemia, unspecified (principal); K57.92 Diverticulitis of intestine, part unspecified, without perforation or abscess without bleeding; R56.9 Unspecified convulsions; E87.6 Hypokalemia; I48.0 Paroxysmal atrial fibrillation; J18.9 Pneumonia, unspecified organism; I11.0 Hypertensive heart disease with heart failure; I50.9 Heart failure, unspecified; R94.31 Abnormal electrocardiogram [ECG] [EKG]; R59.0 Localized enlarged lymph nodes; E66.01 Morbid (severe) obesity due to excess calories; Z68.43 Body mass index [BMI] 50.0-59.9, adult; Z79.01 Long term (current) use of anticoagulants; Z87.891 Personal history of nicotine dependence; Z79.899 Other long term (current) drug therapy
CPT/HCPCS: 36415; 70450; 70486; 70553; 71045; 71275; 74177; 80048; 80053; 81001; 82948; 83036; 83605; 83735; 83880; 84100; 84132; 84145; 84484; 85025; 85027; 85380; 85610; 85730; 86140; 86738; 87040; 87449; 87899; 93005; 94003; 95816; 96361; 96365; 96366; 96367; 96368; 99285; A9270; A9577; C8929; G0378; J0696; J1836; J3480; J7030; J7040; Q9957; Q9967